=== PATIENT | male | born 1995 | race Caucasian/White ===

== ENCOUNTER 2020-03-09 14:46 | Emergency (ER) | payer OTHER, SELFPAY ==
[2020-03-09 14:53] VITALS: BP 124/77; PULSE 80; RESP 14; TEMP 36.4; O2SAT 100; BMI 24.4
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
[2020-03-09 16:01] VITALS: BP 121/61; PULSE 73; O2SAT 100
== END 2020-03-09 16:02 | disposition home or self-care (01) ==
PROVIDERS: Emergency Provider Emergency Medicine
DX: S09.90XA Unspecified injury of head, initial encounter (principal); R55 Syncope and collapse; W22.8XXA Striking against or struck by other objects, initial encounter; Y99.0 Civilian activity done for income or pay
CPT/HCPCS: 70450; 99281; 99284

== ENCOUNTER 2022-03-15 14:14 | Emergency (ER) | payer OTHER, SELFPAY ==
[2022-03-15 14:23] VITALS: BP 140/83; PULSE 91; RESP 16; TEMP 36.9; O2SAT 97; BMI 21.1
--- NOTE | 2022-03-15 14:36 | PC.NURSE ---
Pt given water and food. resting on stretcher. cooperative
--- NOTE | 2022-03-15 14:44 | ED.PSYCH ---
HPI - Psych <Elma Horton DO - Last Filed: 03/16/22 07:48> General Chief Complaint: Psychiatric Symptoms Stated Complaint: [place] Time Seen by Provider: 03/15/22 14:24 History of Present Illness HPI Narrative: Patient is a 26-year-old male history of polysubstance abuse including heroin methamphetamine cannabis and alcohol presenting today with altered mental status. 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 Patient reports that he is a Re and coordination of Wilfred Turcios in listening to the song Mr. Brock sue is truth. States that he is a fiancee who has not met yet they both like chocolate and they were both putting their mother's 1st. He is focused on the fact that his ex- and his mother have the same name. He states he does have a history of depression he was prescribed Zoloft however he does not really like it. Sounds like he uses substances to self medicate. He denies using any recent substances. He is not been hospitalized for mental health. He denies suicidal or homicidal ideations. He wants Peace for everyone. Related Data Allergies Allergy/AdvReac Type Severity Reaction Status Date / Time No Known Drug Allergies Allergy Verified 02/24/22 13:00 Review of Systems <DO Pati Olivas Last Filed: 03/16/22 07:48> Review of Systems ROS Unobtainable: All systems reviewed & are unremarkable except as noted in HPI and below Patient History <DO Pati Olivas Last Filed: 03/16/22 07:48> Medical History Elevated blood pressure reading without diagnosis of hypertension Heroin use Marijuana use Methamphetamine use Social History Smoking Status: Former smoker Smoking Status: Former smoker alcohol intake frequency: a few times a week Substance Use Type: marijuana Exam <DO Pati Olivas Last Filed: 03/16/22 07:48> Initial Vital Signs Initial Vital Signs: Vital Signs Temperature 98.4 F 03/15/22 14:23 Pulse Rate 91 H 03/15/22 14:23 Respiratory Rate 16 03/15/22 14:23 Blood Pressure 140/83 03/15/22 14:23 Pulse Oximetry 97 03/15/22 14:23 Oxygen Delivery Method 03/15/22 14:23 GENERAL: Well-appearing, well-nourished and in no acute distress. HEENT: Head atraumatic,EOMI, pupils reactive, face symmetric, moist mucous membranes CARDIOVASCULAR: Regular rate and rhythm without murmurs, rubs or gallops. RESPIRATORY: Breath sounds equal bilaterally, no wheezes rales or rhonchi. ABDOMEN: Soft, nontender. Normoactive bowel sounds all 4 quadrants. No guarding or rebound. EXTREMITIES: Normal range of motion, no clubbing or edema. Neurovascularly intact NEUROLOGICAL: Alert and oriented x4.Normal gait and speech. SKIN: Warm, dry, no laceration, no petechiae, no rashes or lesions. <Taco Gastelum MD - Last Filed: 03/16/22 05:32> Initial Vital Signs Initial Vital Signs: Vital Signs Temperature 98.4 F 03/15/22 14:23 Pulse Rate 91 H 03/15/22 14:23 Respiratory Rate 16 03/15/22 14:23 Blood Pressure 140/83 03/15/22 14:23 Pulse Oximetry 97 03/15/22 14:23 Oxygen Delivery Method 03/15/22 14:23 Course <Elma Horton DO - Last Filed: 03/16/22 07:48> Orders Ordered: ED Orders 03/16/22 03:52 EKG-12 Lead Stat 03/16/22 04:10 Covid-19 + FLU A/B + RSV - PCR Stat Discontinued Medications Olanzapine (Olanzapine 10 Mg Vial) 10 mg IM NOW ONE Stop: 03/15/22 19:51 Last Admin: 03/15/22 19:58 Dose: 10 mg Documented By: TEJAS Vital Signs Vital signs: Vital Signs - 8 hr 03/15/22 18:15 Pulse Rate 98 H Blood Pressure 127/72 Pulse Oximetry 97 Oxygen Delivery Method Room Air <Taco Gastelum MD - Last Filed: 03/16/22 05:32> Course Course Narrative: 7:[address] Horton patient has been evaluated by DCR services and has been detained. They are currently waiting for bed assignment. Patient will need Zyprexa intramuscular as he will likely not take oral medication. 12:15 a.m.. Patient has been accepted to [facility] for transfer. DCR has been involved Orders Ordered: ED Orders 03/16/22 03:52 EKG-12 Lead Stat 03/16/22 04:10 Covid-19 + FLU A/B + RSV - PCR Stat Discontinued Medications Olanzapine (Olanzapine 10 Mg Vial) 10 mg IM NOW ONE Stop: 03/15/22 19:51 Last Admin: 03/15/22 19:58 Dose: 10 mg Documented By: TEJAS Vital Signs Vital signs: Vital Signs - 8 hr 03/15/22 18:15 Pulse Rate 98 H Blood Pressure 127/72 Pulse Oximetry 97 Oxygen Delivery Method Room Air MDM - Psych <Elma Horton DO - Last Filed: 03/16/22 07:48> Lab Data Result diagrams: 03/15/22 15:10 03/15/22 15:10 Labs: Lab Results 03/15/22 03/15/22 03/15/22 Range/Units 14:30 14:30 15:10 WBC 5.4 (4.5-11.0) X10^3/uL RBC 5.02 (4.5-5.9) X10^6/uL Hgb 14.9 (13.5-17.5) g/dL Hct 43.8 (41-53) % MCV 87.2 (80-100) fL MCH 29.7 (26-34) PG MCHC 34.1 (30-36) % RDW 12.6 (11.6-14.8) % Plt Count 312 (150-400) X10^3/uL Neut % (Auto) 74.3 (50-75) % Lymph % (Auto) 16.7 L (25-40) % Esmeralda % (Auto) 8.0 (3-14) % Eos % (Auto) 0.3 L (2-4) % Baso % (Auto) 0.7 (0-2) % Neut # (Auto) 4000 (6372-3942) /uL Lymph # (Auto) 900 L (5890-2454) /uL Esmeralda # (Auto) 400 (0-900) /uL Eos # (Auto) 0 (0-450) /uL Baso # (Auto) 0 (0-100) /uL Sodium (137-145) mmol/L Potassium (3.4-5.1) mmol/L Chloride (98-107) mmol/L Carbon Dioxide (22-32) mmol/L BUN (9-20) mg/dL Creatinine (0.66-1.25) mg/dL Estimated GFR (>60) mL/min BUN/Creatinine Ratio (6-22) Glucose (70-100) mg/dL Calcium (8.4-10.2) mg/dL Total Bilirubin (0.2-1.3) mg/dL AST (17-59) IU/L ALT (<50) IU/L Alkaline Phosphatase (38-126) U/L Total Protein (6.3-8.2) g/dL TSH (0.47-4.68) uIU/mL Free T4 (0.78-2.19) ng/dL Urine Color Yellow Urine Appearance Clear Urine pH 6.5 (4.5-8.0) Ur Specific [place] 1.020 (1.000-1.035) Urine Protein Trace H (Negative) Urine Glucose (UA) Negative (Negative) g/dL Urine Ketones 1+ H (NEGATIVE) Urine Occult Blood Negative (Negative) Urine Nitrate Negative (Negative) Urine Bilirubin Negative (NEGATIVE) Urine Urobilinogen 0.2 (0.2) E.U./dL Ur Leukocyte Esterase Trace H (NEGATIVE) Urine RBC None seen (0-5/HPF) Urine WBC 0-1/hpf (0-5/HPF) Urine Bacteria None seen (None) Ur Culture Indicated? Specimen cultured Salicylates (<20) mg/dL U Opiates 300ng/mL cut Negative (Negative) Ur Oxycodone Screen Negative (Negative) Urine Methadone Screen Negative (Negative) Acetaminophen (10-30) ug/mL Ur Barbiturates Screen Negative (Negative) U Tricyclic Antidepress Negative (Negative) Ur Phencyclidine Scrn Negative (Negative) Ur Amphetamines Screen Negative (Negative) U Methamphetamines Scrn Negative (Negative) Ur MDMA Scrn (Ecstasy) Negative (Negative) U Benzodiazepines Scrn Negative (Negative) Urine Cocaine Screen Negative (Negative) U Marijuana (THC) Screen Negative (Negative) Ethyl Alcohol ( - 10) mg/dL SARS-CoV-2 (PCR) (Negative) Influenza A (RT-PCR) (NEGATIVE) Influenza B (RT-PCR) (NEGATIVE) RSV (PCR) (Negative) 03/15/22 03/15/22 03/15/22 Range/Units 15:10 15:10 15:52 WBC (4.5-11.0) X10^3/uL RBC (4.5-5.9) X10^6/uL Hgb (13.5-17.5) g/dL Hct (41-53) % MCV (80-100) fL MCH (26-34) PG MCHC (30-36) % RDW (11.6-14.8) % Plt Count (150-400) X10^3/uL Neut % (Auto) (50-75) % Lymph % (Auto) (25-40) % Esmeralda % (Auto) (3-14) % Eos % (Auto) (2-4) % Baso % (Auto) (0-2) % Neut # (Auto) (1490-8458) /uL Lymph # (Auto) (2182-8089) /uL Esmer[place]da # (Auto) (0-900) /uL Eos # (Auto) (0-450) /uL Baso # (Auto) (0-100) /uL Sodium 139 (137-145) mmol/L Potassium 4.4 (3.4-5.1) mmol/L Chloride 99 (98-107) mmol/L Carbon Dioxide 28 (22-32) mmol/L BUN 17 (9-20) mg/dL Creatinine 0.80 (0.66-1.25) mg/dL Estimated GFR > 60 (>60) mL/min BUN/Creatinine Ratio 21.3 (6-22) Glucose 111 H (70-100) mg/dL Calcium 10.1 (8.4-10.2) mg/dL Total Bilirubin 0.6 (0.2-1.3) mg/dL AST 34 (17-59) IU/L ALT 26 (<50) IU/L Alkaline Phosphatase 77 (38-126) U/L Total Protein 8.4 H (6.3-8.2) g/dL TSH 1.51 (0.47-4.68) uIU/mL Free T4 1.20 (0.78-2.19) ng/dL Urine Color Urine Appearance Urine pH (4.5-8.0) Ur Specific [place] (1.000-1.035) Urine Protein (Negative) Urine Glucose (UA) (Negative) g/dL Urine Ketones (NEGATIVE) Urine Occult Blood (Negative) Urine Nitrate (Negative) Urine Bilirubin (NEGATIVE) Urine Urobilinogen (0.2) E.U./dL Ur Leukocyte Esterase (NEGATIVE) Urine RBC (0-5/HPF) Urine WBC (0-5/HPF) Urine Bacteria (None) Ur Culture Indicated? Salicylates < 1.0 (<20) mg/dL U Opiates 300ng/mL cut (Negative) Ur Oxycodone Screen (Negative) Urine Methadone Screen (Negative) Acetaminophen < 10 (10-30) ug/mL Ur Barbiturates Screen (Negative) U Tricyclic Antidepress (Negative) Ur Phencyclidine Scrn (Negative) Ur Amphetamines Screen (Negative) U Methamphetamines Scrn (Negative) Ur MDMA Scrn (Ecstasy) (Negative) U Benzodiazepines Scrn (Negative) Urine Cocaine Screen (Negative) U Marijuana (THC) Screen (Negative) Ethyl Alcohol < 10 ( - 10) mg/dL SARS-CoV-2 (PCR) Negative (Negative) Influenza A (RT-PCR) (NEGATIVE) Influenza B (RT-PCR) (NEGATIVE) RSV (PCR) (Negative) 03/16/22 Range/Units 04:10 WBC (4.5-11.0) X10^3/uL RBC (4.5-5.9) X10^6/uL Hgb (13.5-17.5) g/dL Hct (41-53) % MCV (80-100) fL MCH (26-34) PG MCHC (30-36) % RDW (11.6-14.8) % Plt Count (150-400) X10^3/uL Neut % (Auto) (50-75) % Lymph % (Auto) (25-40) % Esmer[place]da % (Auto) (3-14) % Eos % (Auto) (2-4) % Baso % (Auto) (0-2) % Neut # (Auto) (0247-9624) /uL Lymph # (Auto) (7376-5038) /uL Esmer[place]da # (Auto) (0-900) /uL Eos # (Auto) (0-450) /uL Baso # (Auto) (0-100) /uL Sodium (137-145) mmol/L Potassium (3.4-5.1) mmol/L Chloride (98-107) mmol/L Carbon Dioxide (22-32) mmol/L BUN (9-20) mg/dL Creatinine (0.66-1.25) mg/dL Estimated GFR (>60) mL/min BUN/Creatinine Ratio (6-22) Glucose (70-100) mg/dL Calcium (8.4-10.2) mg/dL Total Bilirubin (0.2-1.3) mg/dL AST (17-59) IU/L ALT (<50) IU/L Alkaline Phosphatase (38-126) U/L Total Protein (6.3-8.2) g/dL TSH (0.47-4.68) uIU/mL Free T4 (0.78-2.19) ng/dL Urine Color Urine Appearance Urine pH (4.5-8.0) Ur Specific [place] (1.000-1.035) Urine Protein (Negative) Urine Glucose (UA) (Negative) g/dL Urine Ketones (NEGATIVE) Urine Occult Blood (Negative) Urine Nitrate (Negative) Urine Bilirubin (NEGATIVE) Urine Urobilinogen (0.2) E.U./dL Ur Leukocyte Esterase (NEGATIVE) Urine RBC (0-5/HPF) Urine WBC (0-5/HPF) Urine Bacteria (None) Ur Culture Indicated? Salicylates (<20) mg/dL U Opiates 300ng/mL cut (Negative) Ur Oxycodone Screen (Negative) Urine Methadone Screen (Negative) Acetaminophen (10-30) ug/mL Ur Barbiturates Screen (Negative) U Tricyclic Antidepress (Negative) Ur Phencyclidine Scrn (Negative) Ur Amphetamines Screen (Negative) U Methamphetamines Scrn (Negative) Ur MDMA Scrn (Ecstasy) (Negative) U Benzodiazepines Scrn (Negative) Urine Cocaine Screen (Negative) U Marijuana (THC) Screen (Negative) Ethyl Alcohol ( - 10) mg/dL SARS-CoV-2 (PCR) Negative (Negative) Influenza A (RT-PCR) Flu a negative (NEGATIVE) Influenza B (RT-PCR) Flu b negative (NEGATIVE) RSV (PCR) Negative (Negative) MDM Narrative Medical decision making narrative: Patient is a 26-year-old male with history of depression presents today by police for [place] and mental health evaluation. Has pressured speech grandiose ideas. Seems to be manic. Gravely disable. He is not able to care for children. Social work has been in to see and evaluate patient. He has extremely poor judgment. Patient is involuntary. DCR here in person to evaluate patient. Patient is detained. Patient signed out to Dr. Gastelum. Patient has been resting comfortably without any distress after Zyprexa. EKG normal sinus rhythm incomplete right bundle-branch block rate [address] elevation or depression MDM * differential diagnosis includes but not limited to: Method do psychosis, manic, bipolar, schizophrenia * Prior records reviewed: Previous PCP shows alcohol abuse and marijuana abuse * My lab interpretation: No significant lab abnormalities * My imaging interpretation: None * Clinical Decision Rules/Scores evaluated: None * Independent discussions with: DCR * Social Considerations: Children at home * Shared Decision Making: Social work *Disposition: Transfer [facility] <Taco Gastelum MD - Last Filed: 03/16/22 05:32> Lab Data Labs: Lab Results 03/15/22 03/15/22 03/15/22 Range/Units 14:30 14:30 15:10 WBC 5.4 (4.5-11.0) X10^3/uL RBC 5.02 (4.5-5.9) X10^6/uL Hgb 14.9 (13.5-17.5) g/dL Hct 43.8 (41-53) % MCV 87.2 (80-100) fL MCH 29.7 (26-34) PG MCHC 34.1 (30-36) % RDW 12.6 (11.6-14.8) % Plt Count 312 (150-400) X10^3/uL Neut % (Auto) 74.3 (50-75) % Lymph % (Auto) 16.7 L (25-40) % Esmer[place]da % (Auto) 8.0 (3-14) % Eos % (Auto) 0.3 L (2-4) % Baso % (Auto) 0.7 (0-2) % Neut # (Auto) 4000 (7184-5670) /uL Lymph # (Auto) 900 L (0462-9892) /uL [place]mer[place]da # (Auto) 400 (0-900) /uL Eos # (Auto) 0 (0-450) /uL Baso # (Auto) 0 (0-100) /uL Sodium (137-145) mmol/L Potassium (3.4-5.1) mmol/L Chloride (98-107) mmol/L Carbon Dioxide (22-32) mmol/L BUN (9-20) mg/dL Creatinine (0.66-1.25) mg/dL Estimated GFR (>60) mL/min BUN/Creatinine Ratio (6-22) Glucose (70-100) mg/dL Calcium (8.4-10.2) mg/dL Total Bilirubin (0.2-1.3) mg/dL AST (17-59) IU/L ALT (<50) IU/L Alkaline Phosphatase (38-126) U/L Total Protein (6.3-8.2) g/dL TSH (0.47-4.68) uIU/mL Free T4 (0.78-2.19) ng/dL Urine Color Yellow Urine Appearance Clear Urine pH 6.5 (4.5-8.0) Ur Specific [place] 1.020 (1.000-1.035) Urine Protein Trace H (Negative) Urine Glucose (UA) Negative (Negative) g/dL Urine Ketones 1+ H (NEGATIVE) Urine Occult Blood Negative (Negative) Urine Nitrate Negative (Negative) Urine Bilirubin Negative (NEGATIVE) Urine Urobilinogen 0.2 (0.2) E.U./dL Ur Leukocyte Esterase Trace H (NEGATIVE) Urine RBC None seen (0-5/HPF) Urine WBC 0-1/hpf (0-5/HPF) Urine Bacteria None seen (None) Ur Culture Indicated? Specimen cultured Salicylates (<20) mg/dL U Opiates 300ng/mL cut Negative (Negative) Ur Oxycodone Screen Negative (Negative) Urine Methadone Screen Negative (Negative) Acetaminophen (10-30) ug/mL Ur Barbiturates Screen Negative (Negative) U Tricyclic Antidepress Negative (Negative) Ur Phencyclidine Scrn Negative (Negative) Ur Amphetamines Screen Negative (Negative) U Methamphetamines Scrn Negative (Negative) Ur MDMA Scrn (Ecstasy) Negative (Negative) U Benzodiazepines Scrn Negative (Negative) Urine Cocaine Screen Negative (Negative) U Marijuana (THC) Screen Negative (Negative) Ethyl Alcohol ( - 10) mg/dL SARS-CoV-2 (PCR) (Negative) Influenza A (RT-PCR) (NEGATIVE) Influenza B (RT-PCR) (NEGATIVE) RSV (PCR) (Negative) 03/15/22 03/15/22 03/15/22 Range/Units 15:10 15:10 15:52 WBC (4.5-11.0) X10^3/uL RBC (4.5-5.9) X10^6/uL Hgb (13.5-17.5) g/dL Hct (41-53) % MCV (80-100) fL MCH (26-34) PG MCHC (30-36) % RDW (11.6-14.8) % Plt Count (150-400) X10^3/uL Neut % (Auto) (50-75) % Lymph % (Auto) (25-40) % [place] % (Auto) (3-14) % Eos % (Auto) (2-4) % Baso % (Auto) (0-2) % Neut # (Auto) (9396-1943) /uL Lymph # (Auto) (4124-5203) /uL [place]mer[place] # (Auto) (0-900) /uL Eos # (Auto) (0-450) /uL Baso # (Auto) (0-100) /uL Sodium 139 (137-145) mmol/L Potassium 4.4 (3.4-5.1) mmol/L Chloride 99 (98-107) mmol/L Carbon Dioxide 28 (22-32) mmol/L BUN 17 (9-20) mg/dL Creatinine 0.80 (0.66-1.25) mg/dL Estimated GFR > 60 (>60) mL/min BUN/Creatinine Ratio 21.3 (6-22) Glucose 111 H (70-100) mg/dL Calcium 10.1 (8.4-10.2) mg/dL Total Bilirubin 0.6 (0.2-1.3) mg/dL AST 34 (17-59) IU/L ALT 26 (<50) IU/L Alkaline Phosphatase 77 (38-126) U/L Total Protein 8.4 H (6.3-8.2) g/dL TSH 1.51 (0.47-4.68) uIU/mL Free T4 1.20 (0.78-2.19) ng/dL Urine Color Urine Appearance Urine pH (4.5-8.0) Ur Specific [place] (1.000-1.035) Urine Protein (Negative) Urine Glucose (UA) (Negative) g/dL Urine Ketones (NEGATIVE) Urine Occult Blood (Negative) Urine Nitrate (Negative) Urine Bilirubin (NEGATIVE) Urine Urobilinogen (0.2) E.U./dL Ur Leukocyte Esterase (NEGATIVE) Urine RBC (0-5/HPF) Urine WBC (0-5/HPF) Urine Bacteria (None) Ur Culture Indicated? Salicylates < 1.0 (<20) mg/dL U Opiates 300ng/mL cut (Negative) Ur Oxycodone Screen (Negative) Urine Methadone Screen (Negative) Acetaminophen < 10 (10-30) ug/mL Ur Barbiturates Screen (Negative) U Tricyclic Antidepress (Negative) Ur Phencyclidine Scrn (Negative) Ur Amphetamines Screen (Negative) U Methamphetamines Scrn (Negative) Ur MDMA Scrn (Ecstasy) (Negative) U Benzodiazepines Scrn (Negative) Urine Cocaine Screen (Negative) U Marijuana (THC) Screen (Negative) Ethyl Alcohol < 10 ( - 10) mg/dL SARS-CoV-2 (PCR) Negative (Negative) Influenza A (RT-PCR) (NEGATIVE) Influenza B (RT-PCR) (NEGATIVE) RSV (PCR) (Negative) 03/16/22 Range/Units 04:10 WBC (4.5-11.0) X10^3/uL RBC (4.5-5.9) X10^6/uL Hgb (13.5-17.5) g/dL Hct (41-53) % MCV (80-100) fL MCH (26-34) PG MCHC (30-36) % RDW (11.6-14.8) % Plt Count (150-400) X10^3/uL Neut % (Auto) (50-75) % Lymph % (Auto) (25-40) % [place] % (Auto) (3-14) % Eos % (Auto) (2-4) % Baso % (Auto) (0-2) % Neut # (Auto) (3065-4692) /uL Lymph # (Auto) (5327-5417) /uL [place] # (Auto) (0-900) /uL Eos # (Auto) (0-450) /uL Baso # (Auto) (0-100) /uL Sodium (137-145) mmol/L Potassium (3.4-5.1) mmol/L Chloride (98-107) mmol/L Carbon Dioxide (22-32) mmol/L BUN (9-20) mg/dL Creatinine (0.66-1.25) mg/dL Estimated GFR (>60) mL/min BUN/Creatinine Ratio (6-22) Glucose (70-100) mg/dL Calcium (8.4-10.2) mg/dL Total Bilirubin (0.2-1.3) mg/dL AST (17-59) IU/L ALT (<50) IU/L Alkaline Phosphatase (38-126) U/L Total Protein (6.3-8.2) g/dL TSH (0.47-4.68) uIU/mL Free T4 (0.78-2.19) ng/dL Urine Color Urine Appearance Urine pH (4.5-8.0) Ur Specific [place] (1.000-1.035) Urine Protein (Negative) Urine Glucose (UA) (Negative) g/dL Urine Ketones (NEGATIVE) Urine Occult Blood (Negative) Urine Nitrate (Negative) Urine Bilirubin (NEGATIVE) Urine Urobilinogen (0.2) E.U./dL Ur Leukocyte Esterase (NEGATIVE) Urine RBC (0-5/HPF) Urine WBC (0-5/HPF) Urine Bacteria (None) Ur Culture Indicated? Salicylates (<20) mg/dL U Opiates 300ng/mL cut (Negative) Ur Oxycodone Screen (Negative) Urine Methadone Screen (Negative) Acetaminophen (10-30) ug/mL Ur Barbiturates Screen (Negative) U Tricyclic Antidepress (Negative) Ur Phencyclidine Scrn (Negative) Ur Amphetamines Screen (Negative) U Methamphetamines Scrn (Negative) Ur MDMA Scrn (Ecstasy) (Negative) U Benzodiazepines Scrn (Negative) Urine Cocaine Screen (Negative) U Marijuana (THC) Screen (Negative) Ethyl Alcohol ( - 10) mg/dL SARS-CoV-2 (PCR) Negative (Negative) Influenza A (RT-PCR) Flu a negative (NEGATIVE) Influenza B (RT-PCR) Flu b negative (NEGATIVE) RSV (PCR) Negative (Negative) ECG Data Interpretation: Normal sinus rhythm rate [address] elevation or depression. Incomplete right bundle-branch block MDM Narrative Medical decision making narrative: Patient is a 26-year-old male with history of depression presents today by police for [place] and mental health evaluation. Has pressured speech grandiose ideas. Seems to be manic. Gravely disable. He is not able to care for children. Social work has been in to see and evaluate patient. Patient is DCR an involuntary. He has extremely poor judgment. Patient signed out to Dr. Gastelum. Patient has been resting comfortably without any distress after Zyprexa. EKG normal sinus rhythm incomplete right bundle-branch block rate [address] elevation or depression MDM * differential diagnosis includes but not limited to: Method do psychosis, manic, bipolar, schizophrenia * Prior records reviewed: Previous PCP shows alcohol abuse and marijuana abuse * My lab interpretation: No significant lab abnormalities * My imaging interpretation: None * Clinical Decision Rules/Scores evaluated: None * Independent discussions with: DCR * Social Considerations: Children at home * Shared Decision Making: Social work *Disposition: Transfer [facility] Discharge Plan Departure Patient Disposition: Xfer Psychiatric Hosp Clinical Impression: Bipolar disorder, Acute psychosis Referrals: America Reddy DO [Primary Care Provider] -
[2022-03-15 14:50] LABS: Appearance Urine UA CLEAR; Bilirubin Urine UA NEGATIVE (NEGATIVE); Color Urine UA YELLOW; Glucose Urine UA NEGATIVE (Negative); Ketones Urine UA 1+ (NEGATIVE); Leukocyte Esterase Urine UA TRACE (NEGATIVE); Nitrite Urine UA NEGATIVE (Negative); Occult Blood Urine UA NEGATIVE (Negative); Protein Urine UA TRACE (Negative); Urobilinogen Urine UA 0.2 E.U./dL (0.2); pH Urine UA 6.5 (4.5-8.0)
[2022-03-15 14:52] LABS: Bacteria Urine None Seen; Culture Indicated Urine Specimen Cultured; RBC Urine None Seen (0-5/HPF); WBC Urine 0-1/HPF (0-5/HPF)
[2022-03-15 15:08] LABS: UR Morphine/Opiate cutoff 300 Negative (Negative); Ur Creatinine Normal (Normal); Ur Specific Gravity Normal (Normal); Urine Amphetamines Negative (Negative); Urine Barbiturates Negative (Negative); Urine Benzodiazepines Negative (Negative); Urine Cocaine Negative (Negative); Urine MDMA Negative (Negative); Urine Methadone Negative (Negative); Urine Methamphetamines Negative (Negative); Urine Oxycodone Negative (Negative); Urine Phencyclidine Negative (Negative); Urine Tetrahydrocannabinol Negative (Negative); Urine Tricyclic Antidepressant Negative (Negative); Urine pH Normal (Normal)
[2022-03-15 15:24] LABS: Add Manual Diff / Slide Review NO; Basophils Absolute Auto 0 /uL (0-100); Basophils Percent Auto 0.7 % (0-2); Eosinophils Absolute Auto 0 /uL (0-450); Eosinophils Percent Auto 0.3 % (2-4); Hematocrit 43.8 % (41-53); Hemoglobin 14.9 g/dL (13.5-17.5); Lymphocytes Absolute Auto 900 /uL (1100-4500); Lymphocytes Percent Auto 16.7 % (25-40); Mean Corpuscular HGB Conc 34.1 % (30-36); Mean Corpuscular Hemoglobin 29.7 PG (26-34); Mean Corpuscular Volume 87.2 fL (80-100); Monocytes Absolute Auto 400 /uL (0-900); Neutrophils Absolute Auto 4000 /uL (1500-7000); Neutrophils Percent Auto 74.3 % (50-75); Platelet Count 312 X10^3/uL (150-400); Red Blood Cell Count 5.02 X10^6/uL (4.5-5.9); Red Cell Distribution Width 12.6 % (11.6-14.8); White Blood Cell Count 5.4 X10^3/uL (4.5-11.0)
[2022-03-15 15:38] LABS: Acetaminophen < 10 ug/mL (10-30); Alanine Aminotransferase 26 IU/L (<50); Alkaline Phosphatase 77 U/L (38-126); Aspartate Aminotransferase 34 IU/L (17-59); BUN Creatinine Ratio 21.3 (6-22); Bilirubin Total 0.6 mg/dL (0.2-1.3); Blood Urea Nitrogen 17 mg/dL (9-20); Calcium 10.1 mg/dL (8.4-10.2); Carbon Dioxide 28 mmol/L (22-32); Chloride 99 mmol/L (98-107); Estimated Glomerular Filt Rate > 60 mL/min (>60); Ethanol (ETOH) < 10 mg/dL; Glucose 111 mg/dL (70-100); HEMOLYSIS < 15 (0-50); Potassium 4.4 mmol/L (3.4-5.1); Salicylate < 1.0 mg/dL (<20); Sodium 139 mmol/L (137-145); Total Protein 8.4 g/dL (6.3-8.2)
[2022-03-15 16:15] LABS: Thyroid Stimulating Hormone 1.51 uIU/mL (0.47-4.68)
[2022-03-15 16:19] LABS: COVID19 -Nasal RAPID Negative (Negative)
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
--- NOTE | 2022-03-15 16:50 | PC.NURSE ---
Asked if he can check out
[2022-03-15 18:15] VITALS: BP 127/72; PULSE 98; O2SAT 97
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
--- NOTE | 2022-03-15 19:16 | PC.NURSE ---
Talking with DCR
--- NOTE | 2022-03-15 19:40 | CM.SWNOTE ---
STAVE LOG RIPSAW OPERATOR Note STAVE LOG RIPSAW OPERATOR dispatches DCR, DCR Davis is assigned. DCR attempts to meet with patient via Ipad but DCR is unable to hear patient. STAVE LOG RIPSAW OPERATOR attempts to use phone for audio and ipad video but patient becomes frustrated even with assistance from DRY STARCH SUPERVISOR. STAVE LOG RIPSAW OPERATOR requests that DCR comes to ED in person, DCR meets with patient in person and assesses patient for about an hour. DCR reports her plans to call patient's mother and pursue detainment and seek [place] placement. STAVE LOG RIPSAW OPERATOR and DCR reviews this with ED provider Dr. Gastelum, ED provider plans provide chemical intervention for de-escalation as patient is anti-medication and pacing in the room unable to de-escalate independently. Plan: DCR to seek [place] placement for patient. Pearl Solis, ANTHROPOLOGY INSTRUCTOR
[2022-03-15] MEDS: OLANZapine 10 MG VIAL IM (19:58)
[2022-03-16 04:55] LABS: Influenza A - CEPHEID Flu A NEGATIVE (NEGATIVE); Influenza B - CEPHEID Flu B NEGATIVE (NEGATIVE); Respiratory Syncytial Virus Negative (Negative)
[2022-03-16 05:00] LABS: COVID-19 CEPHEID 4-PLEX PCR Negative (Negative)
[2022-03-17 16:29] LABS: Albumin Globulin Ratio 1.5 (1.0-2.8); Globulin 3.4 g/dL (1.7-4.1)
== END 2022-03-16 05:14 ==
PROVIDERS: Emergency Medicine; Emergency Provider Emergency Medicine; PCP Family Medicine
DX: F31.9 Bipolar disorder, unspecified (principal); F23 Brief psychotic disorder; Z20.822 Contact with and (suspected) exposure to COVID-19
CPT/HCPCS: 0241U; 36415; 80053; 80305; 80320; 80329; 81001; 84439; 84443; 85025; 87086; 87635; 93005; 96372; 99284; C9803; G0480; S0166

== ENCOUNTER 2022-05-15 22:01 | Emergency (ER) | payer OTHER, SELFPAY ==
[2022-05-15 22:06] VITALS: BP 127/80; PULSE 85; RESP 16; TEMP 36.9; O2SAT 98; BMI 22.4
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
== END 2022-05-16 00:15 | disposition home or self-care (01) ==
PROVIDERS: Emergency Provider Emergency Medicine; PCP Family Medicine
DX: F31.9 Bipolar disorder, unspecified (principal); V49.40XA Driver injured in collision with unspecified motor vehicles in traffic accident, initial encounter
CPT/HCPCS: 99281

== ENCOUNTER 2022-05-28 08:33 | Emergency (ER) | payer OTHER, MEDICAID, SELFPAY ==
--- NOTE | 2022-05-28 08:43 | ED.PSYCH ---
HPI - Psych General Chief Complaint: Psychiatric Symptoms Stated Complaint: bipolar, psychosis state, threatening suicide Time Seen by Provider: 05/28/22 08:43 Source: patient, RN notes reviewed and old records reviewed Mode of arrival: Ambulatory Limitations: no limitations History of Present Illness HPI Narrative: This is a 26-year-old male with prior history of polysubstance abuse including heroin, methamphetamine and cannabis who states no recent ingestions besides THC. Patient states he is had thoughts of harming himself recently which include cutting his wrist. He states he does not currently have a plan he states he does not wish to harm himself, he states he does not wish to harm others. States that he feels like he is starting to go crazy again. He states he is not having auditory or visual hallucinations but does feel like the thoughts in his head or spinning out of control. Patient states that he was seen and hospitalized in February for mental health. He states he was started on olanzapine, hydroxyzine and another antidepressant. He states he has been taking these daily but he is not convinced that they are helpful. He did have a dose of hydroxyzine at 8:00 a.m. this morning. Patient sees Dr. Del Real as his primary care and he seeing a Dr. Connolly and Dr. Canas for his psychiatric care. He does not currently have a counselor. Patient states that he seeking help he would like to meet with our sr. social media & mobile manager but they are not present until noon today he states he does not wish to wait. He contracts for safety he states that he will return he is having worsening thoughts. He was offered to have further evaluation and lab workup which he defers. He does not appear to be incapacitated at this time or be to level risk to himself that I can hold him involuntarily. He denies tobacco, no active alcohol use. He states he smoked marijuana 2 days ago but has not used any other substances for an extended period of time. He denies any other daily medical issues, no prior surgeries. No known drug allergies. Related Data Previous Rx's Medication Instructions Recorded albuterol sulfate 90 mcg/actuation 1 - 2 inh inhalation Q4-6H PRN 04/05/22 aerosol inhaler shortness of breath or wheezing #8.5 grams hydroxyzine HCl 10 mg tablet 10 mg PO Q6-8H PRN anxiety #30 tabs 04/05/22 olanzapine 10 mg tablet 10 mg PO DAILY #30 tabs 04/05/22 Allergies Allergy/AdvReac Type Severity Reaction Status Date / Time No Known Drug Allergies Allergy Verified 04/05/22 14:32 Review of Systems Review of Systems ROS Unobtainable: All systems reviewed & are unremarkable except as noted in HPI and below Patient History Medical History Acne (~2005) Asthma (~2015) Bipolar 1 disorder Chronic back pain (~2015) Elevated blood pressure reading without diagnosis of hypertension Hearing loss Heroin use Marijuana use Methamphetamine use Musculoskeletal disorder Psychosis Scoliosis Vasovagal response (~2004) Whooping cough (~2015) Surgical History History of oral surgery Family History Father Diabetes mellitus Mental health problem Epilepsy Mother Melanoma Cancer Diabetes mellitus Mental health problem Grandfather Cancer Grandfather Alzheimer's disease Grandmother Cancer Melanoma Social History Smoking Status: Former smoker Smoking Status: Former smoker alcohol intake frequency: a few times a week Substance Use Type: does not use Exam Narrative Exam Narrative: GENERAL: Alert and oriented x three, male in mild distress. Patient is well-groomed. Clear speech. HEENT: Head normocephalic, atraumatic, EOMI, pupils reactive, face symmetric, moist mucous membranes NECK: Supple, full range of motion CARDIOVASCULAR: Regular rate and rhythm without murmurs, rubs or gallops. RESPIRATORY: Breath sounds equal bilaterally, no wheezes rales or rhonchi. ABDOMEN: Soft, nontender. Normoactive bowel sounds all 4 quadrants. No guarding or rebound, rigidity, no mass : No CVA tenderness EXTREMITIES: Normal range of motion, no clubbing or edema. Neurovascularly intact NEUROLOGICAL: Cranial nerves II through XII grossly intact. Moving all extremities SKIN: Warm, dry, no petechiae, no rashes or lesions. PSYCH: Patient describes suicidal thoughts, no intent, no active plan, denies homicidal thoughts, no hallucinations. Initial Vital Signs Initial Vital Signs: Vital Signs Temperature 98.5 F 05/28/22 08:45 Pulse Rate 80 05/28/22 08:45 Respiratory Rate 18 05/28/22 08:45 Blood Pressure 155/77 H 05/28/22 08:45 Pulse Oximetry 98 05/28/22 08:45 Oxygen Delivery Method Room Air 05/28/22 08:45 MDM - Psych MDM Narrative Medical decision making narrative: This is a 26-year-old male with history of mental health disease and prior polysubstance abuse who presents for thoughts that he describes as out of control in his brain he is had some suicidal ideation, denies any intent, denies active plan denies thoughts of harming himself or others. He does not appear to be gravely disabled at this time. We did discuss possibly getting blood and talking with our sr. social media & mobile manager for possible medical clearance for voluntary placement do not think that he meets criteria for [place] at this time. Patient does not wish to wait as that would be 3 hour wait speak with our sr. social media & mobile manager and he states he would miss work. He did discuss he might return at a later time. He has follow-up with his primary care and Psychiatry. He is encouraged to continue his medications. Did discuss with patient he can return at any time and social work is present here afternoon if he would like to return at that time. Discharge Plan Departure Patient Disposition: Home Clinical Impression: Suicidal ideation Activity Restrictions/Additional Instructions: You are welcome to return at any time for re-evaluation or to meet with our sr. social media & mobile manager. They should be here after noon today. If you're feeling suicidal or having suicidal thoughts, contact the suicide hotline (this is also a self-referral number for counseling and assistance had not just suicide hotline): . I would recommend you continue your home medications right now. Please return if you are having worsening thoughts of harming yourself, if you feel your unsafe if you feel your going to harm someone else we have any other new or concerning changes. Prescriptions: No Action hydroxyzine HCl 10 mg tablet 10 mg PO Q6-8H PRN (Reason: anxiety) Qty: 30 5RF albuterol sulfate 90 mcg/actuation HFA aerosol inhaler 1 - 2 inh inhalation Q4-6H PRN (Reason: shortness of breath or wheezing) Qty: 8.5 11RF olanzapine 10 mg tablet 10 mg PO DAILY Qty: 30 5RF Referrals: America Reddy DO [Primary Care Provider] - Stand Alone Forms: Patient Portal/API
[2022-05-28 08:45] VITALS: BP 155/77; PULSE 80; RESP 18; TEMP 36.9; O2SAT 98
--- NOTE | 2022-05-28 11:49 | CM.SWNOTE ---
OIL RAG WASHER follow up Note Patient presented to ED due to concern for psychosis, patient initially endorsed thoughts of using knife to harm/kill self but denied intent and states he would reach out for help prior to doing so. Patient was deemed safe to d/c by ED provider prior to OIL RAG WASHER's arrival to work. Patient is 26 y/o male with hx of Bipolar and Polysubstance use. Patient has hx of [place] inpatient placement at [facility] on 03/16/22. OIL RAG WASHER calls patient patient presents with flat affect on phone stating that he is in full blown psychosis. Patient states that he called out sick from work and he is at home with his mother in [place]. Patient endorses safety but states he is mentally drained. Patient endorses concern for his finances and states he was scammed. OIL RAG WASHER asks if patient is willing to recieve a call from the crisis line, patient endorses agreement. OIL RAG WASHER encourages patient to return to ED if symptoms worsen and if patient feels unsafe, patient indicates agreement and understanding. OIL RAG WASHER calls [facility] crisis line and schedules f/u call for patient for this afternoon. Clinician reports that if patient is deemed unsafe or gravely disabled, DCR will be dispatched to patient's residence. MICHELLE PatelSW
== END 2022-05-28 08:56 | disposition home or self-care (01) ==
PROVIDERS: Emergency Provider Emergency Medicine; PCP Family Medicine
DX: R45.851 Suicidal ideations (principal)
CPT/HCPCS: 99283

== ENCOUNTER 2022-05-28 18:08 | Emergency (ER) | payer OTHER, MEDICAID, SELFPAY ==
[2022-05-28 18:14] VITALS: BP 127/77; PULSE 104; RESP 16; TEMP 36.7; O2SAT 100; BMI 23.0
--- NOTE | 2022-05-28 18:47 | PC.NURSE ---
Patient getting lab draw, lab called for help. Patient pale, diaphoretic and eyes rolled back. Quickly responded to staff, did I pass out again Patient reclined in chair and vitals checked.
[2022-05-28 18:48] VITALS: BP 145/76; PULSE 74; RESP 16; O2SAT 99
[2022-05-28 18:58] LABS: Add Manual Diff / Slide Review NO; Basophils Absolute Auto 100 /uL (0-100); Basophils Percent Auto 0.9 % (0-2); Eosinophils Absolute Auto 100 /uL (0-450); Eosinophils Percent Auto 1.8 % (2-4); Hematocrit 46.6 % (41-53); Hemoglobin 15.9 g/dL (13.5-17.5); Lymphocytes Absolute Auto 1400 /uL (1100-4500); Lymphocytes Percent Auto 21.3 % (25-40); Mean Corpuscular HGB Conc 34.2 % (30-36); Mean Corpuscular Hemoglobin 29.6 PG (26-34); Mean Corpuscular Volume 86.5 fL (80-100); Monocytes Absolute Auto 600 /uL (0-900); Monocytes Percent Auto 10.1 % (3-14); Neutrophils Absolute Auto 4200 /uL (1500-7000); Neutrophils Percent Auto 65.9 % (50-75); Platelet Count 255 X10^3/uL (150-400); Red Blood Cell Count 5.39 X10^6/uL (4.5-5.9); White Blood Cell Count 6.3 X10^3/uL (4.5-11.0)
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
--- NOTE | 2022-05-28 19:16 | CM.SWNOTE ---
PAD HAND Note PAD HAND calls [facility] intake (pH. # [phone]) It is reported that they have two beds, intake is familiar with patient and would be willing to accept patient upon medical clearance and [facility] Pre-authorization. PAD HAND completes Pre-auth form. Patient awaiting medical clearance. Plan: ED team to fax packet to [facility] and fax referral to [facility] for potential voluntary BH transfer. Pearl Solis, FLAKE CUTTER OPERATOR
[2022-05-28 19:18] LABS: Alanine Aminotransferase 22 IU/L (<50); Albumin 4.8 g/dL (3.5-5.0); Albumin Globulin Ratio 1.4 (1.0-2.8); Alkaline Phosphatase 69 U/L (38-126); Aspartate Aminotransferase 23 IU/L (17-59); BUN Creatinine Ratio 16.3 (6-22); Bilirubin Total 0.5 mg/dL (0.2-1.3); Blood Urea Nitrogen 13 mg/dL (9-20); Calcium 9.5 mg/dL (8.4-10.2); Carbon Dioxide 32 mmol/L (22-32); Chloride 100 mmol/L (98-107); Estimated Glomerular Filt Rate > 60 mL/min (>60); Ethanol (ETOH) < 10 mg/dL; Globulin 3.5 g/dL (1.7-4.1); Glucose 130 mg/dL (70-100); HEMOLYSIS 16 (0-50); Potassium 4.1 mmol/L (3.4-5.1); Sodium 139 mmol/L (137-145); Total Protein 8.3 g/dL (6.3-8.2)
[2022-05-28 19:26] LABS: COVID19 -Nasal RAPID Negative (Negative)
[2022-05-28 19:48] LABS: TSH w/ Reflex to FT4 1.06 uIU/mL (0.47-4.68)
[2022-05-28 19:49] LABS: Appearance Urine UA CLEAR; Bilirubin Urine UA NEGATIVE (NEGATIVE); Color Urine UA YELLOW; Glucose Urine UA NEGATIVE (Negative); Ketones Urine UA TRACE (NEGATIVE); Leukocyte Esterase Urine UA NEGATIVE (NEGATIVE); Nitrite Urine UA NEGATIVE (Negative); Occult Blood Urine UA NEGATIVE (Negative); Protein Urine UA NEGATIVE (Negative); Specific Gravity Urine UA 1.015 (1.000-1.035)
[2022-05-28 19:53] LABS: UR Morphine/Opiate cutoff 300 Negative (Negative); Ur Creatinine Normal (Normal); Ur Specific Gravity Normal (Normal); Urine Amphetamines Negative (Negative); Urine Barbiturates Negative (Negative); Urine Benzodiazepines Negative (Negative); Urine Cocaine Negative (Negative); Urine MDMA Negative (Negative); Urine Methadone Negative (Negative); Urine Methamphetamines Negative (Negative); Urine Oxycodone Negative (Negative); Urine Phencyclidine Negative (Negative); Urine Tetrahydrocannabinol Negative (Negative); Urine Tricyclic Antidepressant Negative (Negative); Urine pH Normal (Normal)
[2022-05-28 19:56] LABS: Bacteria Urine Occasional (0-1); RBC Urine None Seen (0-5/HPF); WBC Urine None Seen (0-5/HPF)
--- NOTE | 2022-05-28 20:02 | PC.NURSE ---
Voluntary [facility] has beds, will need pre-auth insurance from [facility] Please Fax&call both [facility] (Ph. # [phone] In AM to f/u) and [facility] (Ph. # [phone]) Sister: Vale Jara. Pt gave consent for sister to talk about patient [phone]
--- NOTE | 2022-05-28 21:32 | ED.PSYCH ---
HPI - Psych <Marshall Hinojosa DO - Last Filed: 05/30/22 05:20> General Chief Complaint: Psychiatric Symptoms Stated Complaint: SI Time Seen by Provider: 05/28/22 18:18 Mode of arrival: other History of Present Illness HPI Narrative: 26-year-old male nonsmoker with history of bipolar 1 disorder, suicidal ideation without attempt, history of polysubstance abuse including marijuana and more remotely mushrooms, mildly, methamphetamines, heroin and kratom. Patient had been seen and evaluated earlier today and was feeling well enough to go home but as the day has worn on he states that his feeling of detachment as well as thoughts of suicidal ideation have been intensifying and he came back. He is asking for help and is hoping to become placed. He is already been seen by social work. Though he has suicidal ideation he denies any specific plan at this time. He states his trigger is financial but did not go into further detail. He denies auditory or visual hallucinations. He states that up until today he had been taking his medications as directed but admittedly does not like how they make him feel Related Data Home Medications Medication Instructions Recorded Confirmed lamotrigine 25 mg tablet mg 05/28/22 olanzapine 10 mg tablet 10 mg PO QPM 05/28/22 05/28/22 Previous Rx's Medication Instructions Recorded albuterol sulfate 90 mcg/actuation 1 - 2 inh inhalation Q4-6H PRN 04/05/22 aerosol inhaler shortness of breath or wheezing #8.5 grams hydroxyzine HCl 10 mg tablet 10 mg PO Q6-8H PRN anxiety #30 tabs 04/05/22 Allergies Allergy/AdvReac Type Severity Reaction Status Date / Time No Known Drug Allergies Allergy Verified 05/28/22 20:52 Review of Systems <Marshall Hinojosa DO - Last Filed: 05/30/22 05:20> Review of Systems Narrative: GENERAL: Denies chills, fatigue, malaise, fever, sweats. HEENT: Denies sinus pain, ear pain, sore throat, difficulty swallowing, dizziness. RESPIRATORY: Denies dyspnea, cough, wheezing, hemoptysis, sputum. CARDIOVASCULAR: Denies chest pain, palpitations, orthopnea, edema, GASTROINTESTINAL: Denies nausea, vomiting, abdominal pain, diarrhea, constipation, melena. : Denies dysuria, frequency, incontinence, hematuria, urinary retention. MUSCULOSKELETAL: denies weakness, joint pain, or bony pain SKIN: Denies rash, skin lesions, or other NEUROLOGIC: Denies weakness, headache, numbness, change in speech, confusion, seizures, incoordination. PSYCHIATRIC: See HPI 12 point review of systems is negative except for those stated above Patient History <Marshall Hinojosa DO - Last Filed: 05/30/22 05:20> Medical History Acne (~2005) Asthma (~2015) Bipolar 1 disorder Chronic back pain (~2015) Elevated blood pressure reading without diagnosis of hypertension Hearing loss Heroin use Marijuana use Methamphetamine use Musculoskeletal disorder Psychosis Scoliosis Vasovagal response (~2004) Whooping cough (~2015) Surgical History History of oral surgery Family History Father Diabetes mellitus Mental health problem Epilepsy Mother Melanoma Cancer Diabetes mellitus Mental health problem Grandfather Cancer Grandfather Alzheimer's disease Grandmother Cancer Melanoma Social History Smoking Status: Former smoker Smoking Status: Former smoker alcohol intake frequency: a few times a week Substance Use Type: former substance user and marijuana Exam <Marshall Hinojosa DO - Last Filed: 05/30/22 05:20> Narrative Exam Narrative: GENERAL: [26] year old patient appears stated age. Well-developed patient, in mild distress. HEAD: Atraumatic. Normocephalic. EYES: Pupils equal round and reactive. Extraocular motions intact. No scleral icterus. No injection or drainage. ENT: Nose without bleeding, purulent drainage. Throat without erythema, tonsillar hypertrophy or exudate. Airway patent. NECK: Trachea midline. Non tender CARDIOVASCULAR: Regular rate and rhythm without murmurs, gallops, or rubs. RESPIRATORY: Clear to auscultation. Breath sounds equal bilaterally. No wheezes, rales, or rhonchi. GASTROINTESTINAL: Abdomen soft, non-tender, nondistended. EXTREMITIES: No edema or joint tenderness. BACK: Nontender without deformity or crepitance. No flank tenderness. NEURO: AOx3. SKIN: No rash or erythema of visible areas Initial Vital Signs Initial Vital Signs: Vital Signs Temperature 98.1 F 05/28/22 18:14 Pulse Rate 104 H 05/28/22 18:14 Respiratory Rate 16 05/28/22 18:14 Blood Pressure 127/77 05/28/22 18:14 Pulse Oximetry 100 05/28/22 18:14 Oxygen Delivery Method Room Air 05/28/22 18:14 <Kayce Abreu DO - Last Filed: 05/29/22 18:45> Initial Vital Signs Initial Vital Signs: Vital Signs Temperature 98.1 F 05/28/22 18:14 Pulse Rate 104 H 05/28/22 18:14 Respiratory Rate 16 05/28/22 18:14 Blood Pressure 127/77 05/28/22 18:14 Pulse Oximetry 100 05/28/22 18:14 Oxygen Delivery Method Room Air 05/28/22 18:14 Course <Marshall Hinojosa DO - Last Filed: 05/30/22 05:20> Orders Ordered: Discontinued Medications Olanzapine (Olanzapine Odt 10 Mg Tab) 20 mg PO NOW ONE Stop: 05/28/22 22:00 Last Admin: 05/28/22 22:03 Dose: 20 mg Documented By: NAOMI Olanzapine (Olanzapine Odt 10 Mg Tab) 20 mg PO NOW ONE Stop: 05/29/22 10:58 Last Admin: 05/29/22 11:10 Dose: 20 mg Documented By: AMU Consultations Consultation #1: Seen by social work, please review their note for details Vital Signs Vital signs: Vital Signs - 8 hr 05/29/22 07:12 Pulse Rate 91 H Blood Pressure 127/82 Pulse Oximetry 98 Oxygen Delivery Method Room Air <Kayce Abreu DO - Last Filed: 05/29/22 18:45> Orders Ordered: Discontinued Medications Olanzapine (Olanzapine Odt 10 Mg Tab) 20 mg PO NOW ONE Stop: 05/28/22 22:00 Last Admin: 05/28/22 22:03 Dose: 20 mg Documented By: NAOMI Olanzapine (Olanzapine Odt 10 Mg Tab) 20 mg PO NOW ONE Stop: 05/29/22 10:58 Last Admin: 05/29/22 11:10 Dose: 20 mg Documented By: AMU Vital Signs Vital signs: Vital Signs - 8 hr 05/29/22 07:12 Pulse Rate 91 H Blood Pressure 127/82 Pulse Oximetry 98 Oxygen Delivery Method Room Air MDM - Psych <Marshall Hinojosa, DO - Last Filed: 05/30/22 05:20> Lab Data 05/28/22 18:40 05/28/22 18:40 Labs: Lab Results 05/28/22 05/28/22 05/28/22 Range/Units 18:40 18:40 18:40 WBC 6.3 (4.5-11.0) X10^3/uL RBC 5.39 (4.5-5.9) X10^6/uL Hgb 15.9 (13.5-17.5) g/dL Hct 46.6 (41-53) % MCV 86.5 (80-100) fL MCH 29.6 (26-34) PG MCHC 34.2 (30-36) % RDW 13.0 (11.6-14.8) % Plt Count 255 (150-400) X10^3/uL Neut % (Auto) 65.9 (50-75) % Lymph % (Auto) 21.3 L (25-40) % [place] % (Auto) 10.1 (3-14) % Eos % (Auto) 1.8 L (2-4) % Baso % (Auto) 0.9 (0-2) % Neut # (Auto) 4200 (4498-4344) /uL Lymph # (Auto) 1400 (7847-1123) /uL [place] # (Auto) 600 (0-900) /uL Eos # (Auto) 100 (0-450) /uL Baso # (Auto) 100 (0-100) /uL Sodium 139 (137-145) mmol/L Potassium 4.1 (3.4-5.1) mmol/L Chloride 100 (98-107) mmol/L Carbon Dioxide 32 (22-32) mmol/L BUN 13 (9-20) mg/dL Creatinine 0.80 (0.66-1.25) mg/dL Estimated GFR > 60 (>60) mL/min BUN/Creatinine Ratio 16.3 (6-22) Glucose 130 H (70-100) mg/dL Calcium 9.5 (8.4-10.2) mg/dL Total Bilirubin 0.5 (0.2-1.3) mg/dL AST 23 (17-59) IU/L ALT 22 (<50) IU/L Alkaline Phosphatase 69 (38-126) U/L Total Protein 8.3 H (6.3-8.2) g/dL Albumin 4.8 (3.5-5.0) g/dL Globulin 3.5 (1.7-4.1) g/dL Albumin/Globulin Ratio 1.4 (1.0-2.8) TSH 1.06 (0.47-4.68) uIU/mL Urine Color Urine Appearance Urine pH (4.5-8.0) Ur Specific [place] (1.000-1.035) Urine Protein (Negative) Urine Glucose (UA) (Negative) g/dL Urine Ketones (NEGATIVE) Urine Occult Blood (Negative) Urine Nitrate (Negative) Urine Bilirubin (NEGATIVE) Urine Urobilinogen (0.2) E.U./dL Ur Leukocyte Esterase (NEGATIVE) Urine RBC (0-5/HPF) Urine WBC (0-5/HPF) Urine Bacteria (None) U Opiates 300ng/mL cut (Negative) Ur Oxycodone Screen (Negative) Urine Methadone Screen (Negative) Ur Barbiturates Screen (Negative) U Tricyclic Antidepress (Negative) Ur Phencyclidine Scrn (Negative) Ur Amphetamines Screen (Negative) U Methamphetamines Scrn (Negative) Ur MDMA Scrn (Ecstasy) (Negative) U Benzodiazepines Scrn (Negative) Urine Cocaine Screen (Negative) U Marijuana (THC) Screen (Negative) Ethyl Alcohol < 10 ( - 10) mg/dL SARS-CoV-2 (PCR) (Negative) 05/28/22 05/28/22 05/28/22 Range/Units 19:00 19:20 19:20 WBC (4.5-11.0) X10^3/uL RBC (4.5-5.9) X10^6/uL Hgb (13.5-17.5) g/dL Hct (41-53) % MCV (80-100) fL MCH (26-34) PG MCHC (30-36) % RDW (11.6-14.8) % Plt Count (150-400) X10^3/uL Neut % (Auto) (50-75) % Lymph % (Auto) (25-40) % [place] % (Auto) (3-14) % Eos % (Auto) (2-4) % Baso % (Auto) (0-2) % Neut # (Auto) (6695-0822) /uL Lymph # (Auto) (8460-3583) /uL [place] # (Auto) (0-900) /uL Eos # (Auto) (0-450) /uL Baso # (Auto) (0-100) /uL Sodium (137-145) mmol/L Potassium (3.4-5.1) mmol/L Chloride (98-107) mmol/L Carbon Dioxide (22-32) mmol/L BUN (9-20) mg/dL Creatinine (0.66-1.25) mg/dL Estimated GFR (>60) mL/min BUN/Creatinine Ratio (6-22) Glucose (70-100) mg/dL Calcium (8.4-10.2) mg/dL Total Bilirubin (0.2-1.3) mg/dL AST (17-59) IU/L ALT (<50) IU/L Alkaline Phosphatase (38-126) U/L Total Protein (6.3-8.2) g/dL Albumin (3.5-5.0) g/dL Globulin (1.7-4.1) g/dL Albumin/Globulin Ratio (1.0-2.8) TSH (0.47-4.68) uIU/mL Urine Color Yellow Urine Appearance Clear Urine pH 7.0 (4.5-8.0) Ur Specific [place] 1.015 (1.000-1.035) Urine Protein Negative (Negative) Urine Glucose (UA) Negative (Negative) g/dL Urine Ketones Trace H (NEGATIVE) Urine Occult Blood Negative (Negative) Urine Nitrate Negative (Negative) Urine Bilirubin Negative (NEGATIVE) Urine Urobilinogen 1.0 (0.2) E.U./dL Ur Leukocyte Esterase Negative (NEGATIVE) Urine RBC None seen (0-5/HPF) Urine WBC None seen (0-5/HPF) Urine Bacteria Occasional (0-1) (None) U Opiates 300ng/mL cut Negative (Negative) Ur Oxycodone Screen Negative (Negative) Urine Methadone Screen Negative (Negative) Ur Barbiturates Screen Negative (Negative) U Tricyclic Antidepress Negative (Negative) Ur Phencyclidine Scrn Negative (Negative) Ur Amphetamines Screen Negative (Negative) U Methamphetamines Scrn Negative (Negative) Ur MDMA Scrn (Ecstasy) Negative (Negative) U Benzodiazepines Scrn Negative (Negative) Urine Cocaine Screen Negative (Negative) U Marijuana (THC) Screen Negative (Negative) Ethyl Alcohol ( - 10) mg/dL SARS-CoV-2 (PCR) Negative (Negative) Urine Dip Bedside Urine Glucose Negative Bedside Urine Bilirubin - Negative Bedside Urine Ketone - Negative Urine Specific [place] 1.010 Bedside Urine Occult Blood - Negative Bedside Urine pH 7.5 Bedside Urine Protein - Negative Bedside Urine Urobilinogen - Negative Bedside Urine Nitrite - Negative Bedside Urine Leukocytes - Negative Esterase MDM Narrative Medical decision making narrative: 26-year-old male bipolar with increasing suicidal ideation presents requesting help with placement. He is voluntary and has been seen by social work. He is medically cleared and appropriate for hospitalization. It is my opinion that the patient would benefit from an inpatient evaluation for stabilization of his condition. Medical clearance provided at 9:45 p.m. <Kayce Abreu, DO - Last Filed: 05/29/22 18:45> Lab Data Labs: Lab Results 05/28/22 05/28/22 05/28/22 Range/Units 18:40 18:40 18:40 WBC 6.3 (4.5-11.0) X10^3/uL RBC 5.39 (4.5-5.9) X10^6/uL Hgb 15.9 (13.5-17.5) g/dL Hct 46.6 (41-53) % MCV 86.5 (80-100) fL MCH 29.6 (26-34) PG MCHC 34.2 (30-36) % RDW 13.0 (11.6-14.8) % Plt Count 255 (150-400) X10^3/uL Neut % (Auto) 65.9 (50-75) % Lymph % (Auto) 21.3 L (25-40) % [place] % (Auto) 10.1 (3-14) % Eos % (Auto) 1.8 L (2-4) % Baso % (Auto) 0.9 (0-2) % Neut # (Auto) 4200 (2516-2357) /uL Lymph # (Auto) 1400 (9970-4833) /uL [place] # (Auto) 600 (0-900) /uL Eos # (Auto) 100 (0-450) /uL Baso # (Auto) 100 (0-100) /uL Sodium 139 (137-145) mmol/L Potassium 4.1 (3.4-5.1) mmol/L Chloride 100 (98-107) mmol/L Carbon Dioxide 32 (22-32) mmol/L BUN 13 (9-20) mg/dL Creatinine 0.80 (0.66-1.25) mg/dL Estimated GFR > 60 (>60) mL/min BUN/Creatinine Ratio 16.3 (6-22) Glucose 130 H (70-100) mg/dL Calcium 9.5 (8.4-10.2) mg/dL Total Bilirubin 0.5 (0.2-1.3) mg/dL AST 23 (17-59) IU/L ALT 22 (<50) IU/L Alkaline Phosphatase 69 (38-126) U/L Total Protein 8.3 H (6.3-8.2) g/dL Albumin 4.8 (3.5-5.0) g/dL Globulin 3.5 (1.7-4.1) g/dL Albumin/Globulin Ratio 1.4 (1.0-2.8) TSH 1.06 (0.47-4.68) uIU/mL Urine Color Urine Appearance Urine pH (4.5-8.0) Ur Specific [place] (1.000-1.035) Urine Protein (Negative) Urine Glucose (UA) (Negative) g/dL Urine Ketones (NEGATIVE) Urine Occult Blood (Negative) Urine Nitrate (Negative) Urine Bilirubin (NEGATIVE) Urine Urobilinogen (0.2) E.U./dL Ur Leukocyte Esterase (NEGATIVE) Urine RBC (0-5/HPF) Urine WBC (0-5/HPF) Urine Bacteria (None) U Opiates 300ng/mL cut (Negative) Ur Oxycodone Screen (Negative) Urine Methadone Screen (Negative) Ur Barbiturates Screen (Negative) U Tricyclic Antidepress (Negative) Ur Phencyclidine Scrn (Negative) Ur Amphetamines Screen (Negative) U Methamphetamines Scrn (Negative) Ur MDMA Scrn (Ecstasy) (Negative) U Benzodiazepines Scrn (Negative) Urine Cocaine Screen (Negative) U Marijuana (THC) Screen (Negative) Ethyl Alcohol < 10 ( - 10) mg/dL SARS-CoV-2 (PCR) (Negative) 05/28/22 05/28/22 05/28/22 Range/Units 19:00 19:20 19:20 WBC (4.5-11.0) X10^3/uL RBC (4.5-5.9) X10^6/uL Hgb (13.5-17.5) g/dL Hct (41-53) % MCV (80-100) fL MCH (26-34) PG MCHC (30-36) % RDW (11.6-14.8) % Plt Count (150-400) X10^3/uL Neut % (Auto) (50-75) % Lymph % (Auto) (25-40) % [place] % (Auto) (3-14) % Eos % (Auto) (2-4) % Baso % (Auto) (0-2) % Neut # (Auto) (7092-5557) /uL Lymph # (Auto) (3308-5041) /uL [place] # (Auto) (0-900) /uL Eos # (Auto) (0-450) /uL Baso # (Auto) (0-100) /uL Sodium (137-145) mmol/L Potassium (3.4-5.1) mmol/L Chloride (98-107) mmol/L Carbon Dioxide (22-32) mmol/L BUN (9-20) mg/dL Creatinine (0.66-1.25) mg/dL Estimated GFR (>60) mL/min BUN/Creatinine Ratio (6-22) Glucose (70-100) mg/dL Calcium (8.4-10.2) mg/dL Total Bilirubin (0.2-1.3) mg/dL AST (17-59) IU/L ALT (<50) IU/L Alkaline Phosphatase (38-126) U/L Total Protein (6.3-8.2) g/dL Albumin (3.5-5.0) g/dL Globulin (1.7-4.1) g/dL Albumin/Globulin Ratio (1.0-2.8) TSH (0.47-4.68) uIU/mL Urine Color Yellow Urine Appearance Clear Urine pH 7.0 (4.5-8.0) Ur Specific [place] 1.015 (1.000-1.035) Urine Protein Negative (Negative) Urine Glucose (UA) Negative (Negative) g/dL Urine Ketones Trace H (NEGATIVE) Urine Occult Blood Negative (Negative) Urine Nitrate Negative (Negative) Urine Bilirubin Negative (NEGATIVE) Urine Urobilinogen 1.0 (0.2) E.U./dL Ur Leukocyte Esterase Negative (NEGATIVE) Urine RBC None seen (0-5/HPF) Urine WBC None seen (0-5/HPF) Urine Bacteria Occasional (0-1) (None) U Opiates 300ng/mL cut Negative (Negative) Ur Oxycodone Screen Negative (Negative) Urine Methadone Screen Negative (Negative) Ur Barbiturates Screen Negative (Negative) U Tricyclic Antidepress Negative (Negative) Ur Phencyclidine Scrn Negative (Negative) Ur Amphetamines Screen Negative (Negative) U Methamphetamines Scrn Negative (Negative) Ur MDMA Scrn (Ecstasy) Negative (Negative) U Benzodiazepines Scrn Negative (Negative) Urine Cocaine Screen Negative (Negative) U Marijuana (THC) Screen Negative (Negative) Ethyl Alcohol ( - 10) mg/dL SARS-CoV-2 (PCR) Negative (Negative) Urine Dip Bedside Urine Glucose Negative Bedside Urine Bilirubin - Negative Bedside Urine Ketone - Negative Urine Specific [place] 1.010 Bedside Urine Occult Blood - Negative Bedside Urine pH 7.5 Bedside Urine Protein - Negative Bedside Urine Urobilinogen - Negative Bedside Urine Nitrite - Negative Bedside Urine Leukocytes - Negative Esterase MDM Narrative Medical decision making narrative: 26-year-old male bipolar with increasing suicidal ideation presents requesting help with placement. He is voluntary and has been seen by social work. He is medically cleared and appropriate for hospitalization. It is my opinion that the patient would benefit from an inpatient evaluation for stabilization of his condition. Medical clearance provided at 9:45 p.m. 05/29/22 Mank: This is a 26-year-old male with history of bipolar with increasing suicidal ideation requesting assistance with placement. Has been voluntary had a dose of olanzapine overnight. Patient has been accepted for transfer to [facility] for psychiatric care but we are awaiting prior authorization from his insurance company so that we can set up transport. After multiple phone calls to [facility] we have been told we can not initiate the prior authorization [facility] has 2. I have included social work in his conversation as well. [facility] states patient can be sent while waiting there might be a bill. This was relayed to the patient he is willing to continue with transport. Patient did request an additional dose of medication. Discharge Plan Departure Patient Disposition: Xfer Psychiatric Hosp Clinical Impression: Depression with suicidal ideation, Medical clearance for psychiatric admission Prescriptions: No Action hydroxyzine HCl 10 mg tablet 10 mg PO Q6-8H PRN (Reason: anxiety) Qty: 30 5RF albuterol sulfate 90 mcg/actuation HFA aerosol inhaler 1 - 2 inh inhalation Q4-6H PRN (Reason: shortness of breath or wheezing) Qty: 8.5 11RF lamotrigine 25 mg tablet Patient Comments: take 1 tablet by mouth once daily for 2 weeks ( 14 days ) then ta... (REFER TO PRESCRIPTION NOTES). olanzapine 10 mg tablet 10 mg PO QPM Referrals: America Reddy DO [Primary Care Provider] -
--- NOTE | 2022-05-28 21:34 | PC.NURSE ---
Provider in romm with Pt
[2022-05-28] MEDS: OLANZapine ODT 10 MG TAB 20 MG PO (22:03)
--- NOTE | 2022-05-28 22:32 | PC.NURSE ---
Pt stating I want to leave, I want to go to work in the morning This [employer] spoke with Pt to let him know if he leaves the process would need to start all over possibly delaying acceptance. Pt acknowledges and states I understand Tech offers to get Pt ear plugs and a more comfortable hospital bed if that would help him to relax while waiting for Insurance Auth to happen, Pt agrees to offer.
--- NOTE | 2022-05-29 00:22 | PC.NURSE ---
Pt lying on gurney, eyes closed,chest rising and falling
--- NOTE | 2022-05-29 05:48 | PC.NURSE ---
Pt Lying on bed, eyes closed,chest rising and falling
[2022-05-29 07:12] VITALS: BP 127/82; PULSE 91; O2SAT 98
--- NOTE | 2022-05-29 08:11 | PC.NURSE ---
Contacted [facility] at 0730 #[phone], spoke with rep Vonda Newton Rep stated that [facility] is responsible for obtaining pre-authorization of acceptance of admission. Repeated three times for clarification. contacted [facility] behavioral health spoke with Sergei harmon RN. Sergei stated that is not accurate for [facility] to obtain pre-authorization, but will address it at [facility] morning meeting at 0900. Will f/u after 0930.
[2022-05-29] MEDS: OLANZapine ODT 10 MG TAB 20 MG PO (11:10)
--- NOTE | 2022-05-29 12:44 | PC.NURSE ---
Pt's sister called and informed of pt's transfer to [facility] per pt's verbal request
== END 2022-05-29 12:34 ==
PROVIDERS: Emergency Medicine; Emergency Provider Emergency Medicine; PCP Family Medicine
DX: R45.851 Suicidal ideations (principal); F32.A Depression, unspecified; R07.9 Chest pain, unspecified; Z20.822 Contact with and (suspected) exposure to COVID-19
CPT/HCPCS: 36415; 80053; 80305; 80320; 81001; 81003; 84443; 85025; 87086; 87635; 93005; 99283; 99284; C9803

== ENCOUNTER 2022-06-25 16:45 | Emergency (ER) | payer OTHER, MEDICAID, SELFPAY ==
[2022-06-25 16:52] VITALS: BP 131/90; PULSE 96; RESP 12; TEMP 37; O2SAT 99; BMI 21.7
--- NOTE | 2022-06-25 17:09 | PC.NURSE ---
This MIRROR INSPECTOR helped pt dress in ED safety paper scrubs and placed belongings in patient labeled bags.
--- NOTE | 2022-06-25 17:19 | ED.PSYCH ---
HPI - Psych General Chief Complaint: Psychiatric Symptoms Stated Complaint: [place] [employer] Time Seen by Provider: 06/25/22 17:19 Source: patient and police Mode of arrival: other Related Data Home Medications Medication Instructions Recorded Confirmed lamotrigine 25 mg tablet mg 05/28/22 olanzapine 10 mg tablet 10 mg PO QPM 05/28/22 05/28/22 Previous Rx's Medication Instructions Recorded albuterol sulfate 90 mcg/actuation 1 - 2 inh inhalation Q4-6H PRN 04/05/22 aerosol inhaler shortness of breath or wheezing #8.5 grams hydroxyzine HCl 10 mg tablet 10 mg PO Q6-8H PRN anxiety #30 tabs 04/05/22 Allergies Allergy/AdvReac Type Severity Reaction Status Date / Time No Known Drug Allergies Allergy Verified 06/25/22 16:57 Patient History Medical History Acne (~2005) Asthma (~2015) Bipolar 1 disorder Chronic back pain (~2015) Elevated blood pressure reading without diagnosis of hypertension Hearing loss Heroin use Marijuana use Methamphetamine use Musculoskeletal disorder Psychosis Scoliosis Vasovagal response (~2004) Whooping cough (~2015) Surgical History History of oral surgery Family History Father Diabetes mellitus Mental health problem Epilepsy Mother Melanoma Cancer Diabetes mellitus Mental health problem Grandfather Cancer Grandfather Alzheimer's disease Grandmother Cancer Melanoma Social History Smoking Status: Former smoker Smoking Status: Former smoker alcohol intake frequency: a few times a week Substance Use Type: former substance user and marijuana Exam Initial Vital Signs Initial Vital Signs: Vital Signs Temperature 98.6 F 06/25/22 16:52 Pulse Rate 96 H 06/25/22 16:52 Respiratory Rate 12 06/25/22 16:52 Blood Pressure 131/90 06/25/22 16:52 Pulse Oximetry 99 06/25/22 16:52 Oxygen Delivery Method Room Air 06/25/22 16:52 Course Orders Ordered: ED Orders 06/25/22 16:47 Consult to CLINICAL NUTRITIONIST - Clean In Places Operator Stat Acetaminophen Stat COVID19 -Nasal RAPID Stat Complete Blood Count AUTO DIFF Stat Comprehensive Metabolic Panel Stat Ethanol (ETOH) Stat Free T4, Direct Thyroxine Stat Salicylate Stat Thyroid Stimulating Hormone Stat Urine Drug Screen, Rapid Stat 06/25/22 16:58 Consult to [facility] - Clean In Places Operator Stat 06/25/22 17:05 Consult to [facility] - Clean In Places Operator Stat Vital Signs Vital signs: Vital Signs - 8 hr 06/25/22 16:52 Temperature 98.6 F Pulse Rate 96 H Respiratory Rate 12 Blood Pressure 131/90 Pulse Oximetry 99 Oxygen Delivery Method Room Air Discharge Plan Departure Prescriptions: No Action hydroxyzine HCl 10 mg tablet 10 mg PO Q6-8H PRN (Reason: anxiety) Qty: 30 5RF albuterol sulfate 90 mcg/actuation HFA aerosol inhaler 1 - 2 inh inhalation Q4-6H PRN (Reason: shortness of breath or wheezing) Qty: 8.5 11RF lamotrigine 25 mg tablet Patient Comments: take 1 tablet by mouth once daily for 2 weeks ( 14 days ) then ta... (REFER TO PRESCRIPTION NOTES). olanzapine 10 mg tablet 10 mg PO QPM Referrals: America Reddy DO [Primary Care Provider] -
[2022-06-25 17:34] LABS: Add Manual Diff / Slide Review NO; Basophils Absolute Auto 100 /uL (0-100); Basophils Percent Auto 0.9 % (0-2); Eosinophils Absolute Auto 0 /uL (0-450); Eosinophils Percent Auto 0.8 % (2-4); Hematocrit 44.8 % (41-53); Hemoglobin 15.6 g/dL (13.5-17.5); Lymphocytes Absolute Auto 1400 /uL (1100-4500); Mean Corpuscular HGB Conc 34.8 % (30-36); Mean Corpuscular Hemoglobin 29.9 PG (26-34); Monocytes Absolute Auto 700 /uL (0-900); Monocytes Percent Auto 10.7 % (3-14); Neutrophils Absolute Auto 3900 /uL (1500-7000); Neutrophils Percent Auto 64.6 % (50-75); Platelet Count 260 X10^3/uL (150-400); Red Blood Cell Count 5.22 X10^6/uL (4.5-5.9); Red Cell Distribution Width 13.1 % (11.6-14.8); White Blood Cell Count 6.1 X10^3/uL (4.5-11.0)
[2022-06-25 17:45] LABS: Acetaminophen < 10 ug/mL (10-30); Alanine Aminotransferase 36 IU/L (<50); Albumin 4.9 g/dL (3.5-5.0); Albumin Globulin Ratio 1.5 (1.0-2.8); Alkaline Phosphatase 58 U/L (38-126); Aspartate Aminotransferase 26 IU/L (17-59); BUN Creatinine Ratio 17.8 (6-22); Bilirubin Total 0.5 mg/dL (0.2-1.3); Blood Urea Nitrogen 13 mg/dL (9-20); Calcium 9.7 mg/dL (8.4-10.2); Carbon Dioxide 31 mmol/L (22-32); Chloride 100 mmol/L (98-107); Estimated Glomerular Filt Rate > 60 mL/min (>60); Ethanol (ETOH) < 10 mg/dL; Globulin 3.3 g/dL (1.7-4.1); Glucose 137 mg/dL (70-100); HEMOLYSIS < 15 (0-50); Potassium 4.2 mmol/L (3.4-5.1); Salicylate < 1.0 mg/dL (<20); Sodium 139 mmol/L (137-145); Total Protein 8.2 g/dL (6.3-8.2)
[2022-06-25 17:50] VITALS: BP 123/82; PULSE 93; O2SAT 99
--- NOTE | 2022-06-25 17:51 | ED.PSYCH ---
HPI - Psych <KAYLEE Madrigal - Last Filed: 06/28/22 19:53> General Chief Complaint: Psychiatric Symptoms Stated Complaint: [place] [facility] Time Seen by Provider: 06/25/22 17:19 Source: patient and police Mode of arrival: other History of Present Illness HPI Narrative: This is a 26-year-old male who presents emergency department with [place] [facility] after patient reports feeling suicidal and told his family and had a knife to his throat. Patient was brought in for involuntary evaluation of his suicidality. Patient expresses increased stressors at home, not being able to see his children, states that he does not want to hurt himself now but did earlier. He states that he does not want to go back to the hospital at [facility] where he was hospitalized 1 month ago. Patient has a history of bipolar 1, heroin, marijuana, methamphetamine use, psychosis, scoliosis, chronic back pain and elevated blood pressure. He denies any attempts at harming himself today. Patient states that he feels like he is in despair because he does not have a car, can not help himself, states that he takes lamotrigine, olanzapine, and hydroxyzine as his everyday medications and has not taken more or less knees scheduled meds. States he can't care for his children or provide and means so he feels very depressed. He can not endorse for his safety if he were to go home but states that he wishes he could go home today. Related Data Home Medications Medication Instructions Recorded Confirmed lamotrigine 25 mg tablet mg 05/28/22 olanzapine 10 mg tablet 10 mg PO QPM 05/28/22 05/28/22 Previous Rx's Medication Instructions Recorded albuterol sulfate 90 mcg/actuation 1 - 2 inh inhalation Q4-6H PRN 04/05/22 aerosol inhaler shortness of breath or wheezing #8.5 grams hydroxyzine HCl 10 mg tablet 10 mg PO Q6-8H PRN anxiety #30 tabs 04/05/22 Allergies Allergy/AdvReac Type Severity Reaction Status Date / Time No Known Drug Allergies Allergy Verified 06/25/22 16:57 Review of Systems <KAYLEE Madrigal - Last Filed: 06/28/22 19:53> Review of Systems ROS Unobtainable: All systems reviewed & are unremarkable except as noted in HPI and below Patient History <KAYLEE Madrigal - Last Filed: 06/28/22 19:53> Medical History Acne (~2005) Asthma (~2015) Bipolar 1 disorder Chronic back pain (~2015) Elevated blood pressure reading without diagnosis of hypertension Hearing loss Heroin use Marijuana use Methamphetamine use Musculoskeletal disorder Psychosis Scoliosis Vasovagal response (~2004) Whooping cough (~2015) Surgical History History of oral surgery Family History Father Diabetes mellitus Mental health problem Epilepsy Mother Melanoma Cancer Diabetes mellitus Mental health problem Grandfather Cancer Grandfather Alzheimer's disease Grandmother Cancer Melanoma Social History Smoking Status: Former smoker Smoking Status: Former smoker alcohol intake frequency: a few times a week Substance Use Type: former substance user and marijuana Exam <KAYLEE Madrigal - Last Filed: 06/28/22 19:53> Narrative Exam Narrative: Reviewed vitals signs and nursing notes. General: Pleasant, sitting upright, in no acute distress, well groomed, afebrile HEENT: symmetrical facial expressions, moist mucous membranes, neck is supple CV: regular rate and rhythm, warm extremities Respiratory: normal work of breathing, without tachypnea or hypoxia. GI: abdomen soft, nondistended, without CVA tenderness bilaterally. MSK: moves all extremities, no weakness, normal tone, ambulatory without deficit Skin: brisk capillary refill, without rash or wound Neuro: clear speech and normal cognition, A&O x3, GCS 15, no focal motor or sensation deficits patient has a flat affect and endorses feeling very depressed. Denies suicidal ideation at this time. Initial Vital Signs Initial Vital Signs: Vital Signs Temperature 98.6 F 06/25/22 16:52 Pulse Rate 96 H 06/25/22 16:52 Respiratory Rate 12 06/25/22 16:52 Blood Pressure 131/90 06/25/22 16:52 Pulse Oximetry 99 06/25/22 16:52 Oxygen Delivery Method Room Air 04/30/23 16:52 <Honey Jones MD - Last Filed: 06/26/22 05:08> Initial Vital Signs Initial Vital Signs: Vital Signs Temperature 98.6 F 06/25/22 16:52 Pulse Rate 96 H 06/25/22 16:52 Respiratory Rate 12 06/25/22 16:52 Blood Pressure 131/90 06/25/22 16:52 Pulse Oximetry 99 06/25/22 16:52 Oxygen Delivery Method Room Air 06/25/22 16:52 Course <KAYLEE Madrigal - Last Filed: 06/28/22 19:53> Orders Ordered: Discontinued Medications Hydroxyzine Pamoate (Hydroxyzine Pamoate 25 Mg Capsule) 25 mg PO NOW ONE Stop: 06/25/22 18:34 Last Admin: 06/25/22 18:54 Dose: 25 mg Documented By: JENNIFER Lorazepam (Lorazepam 0.5 Mg Tablet) 2 mg PO NOW ONE Stop: 06/25/22 21:31 Last Admin: 06/25/22 21:34 Dose: 2 mg Documented By: JAVAD Olanzapine (Olanzapine Odt 10 Mg Tab) 10 mg PO BEDTIME [facility] Olanzapine (Olanzapine Odt 10 Mg Tab) 10 mg PO NOW ONE Stop: 06/25/22 18:51 Last Admin: 06/25/22 18:54 Dose: 10 mg Documented By: JENNIFER Trazodone HCl (Trazodone 50 Mg Tablet) 100 mg PO BEDTIME [facility] Last Admin: 06/25/22 21:34 Dose: 100 mg Documented By: JAVAD Vital Signs Vital signs: Vital Signs - 8 hr 06/25/22 23:28 Pulse Rate 85 Respiratory Rate 18 Blood Pressure 90/64 Pulse Oximetry 100 Oxygen Delivery Method Room Air <Honey Jones MD - Last Filed: 06/26/22 05:08> Orders Ordered: Discontinued Medications Hydroxyzine Pamoate (Hydroxyzine Pamoate 25 Mg Capsule) 25 mg PO NOW ONE Stop: 06/25/22 18:34 Last Admin: 06/25/22 18:54 Dose: 25 mg Documented By: JENNIFER Lorazepam (Lorazepam 0.5 Mg Tablet) 2 mg PO NOW ONE Stop: 06/25/22 21:31 Last Admin: 06/25/22 21:34 Dose: 2 mg Documented By: JAVAD Olanzapine (Olanzapine Odt 10 Mg Tab) 10 mg PO BEDTIME [facility] Olanzapine (Olanzapine Odt 10 Mg Tab) 10 mg PO NOW ONE Stop: 06/25/22 18:51 Last Admin: 06/25/22 18:54 Dose: 10 mg Documented By: JENNIFER Trazodone HCl (Trazodone 50 Mg Tablet) 100 mg PO BEDTIME [facility] Last Admin: 06/25/22 21:34 Dose: 100 mg Documented By: JAVAD Vital Signs Vital signs: Vital Signs - 8 hr 06/25/22 23:28 Pulse Rate 85 Respiratory Rate 18 Blood Pressure 90/64 Pulse Oximetry 100 Oxygen Delivery Method Room Air MDM - Psych <Jenn Price, [employer] - Last Filed: 06/28/22 19:53> Lab Data 06/25/22 17:15 06/25/22 17:15 Labs: Lab Results 06/25/22 06/25/22 06/25/22 Range/Units 17:15 17:15 17:15 WBC 6.1 (4.5-11.0) X10^3/uL RBC 5.22 (4.5-5.9) X10^6/uL Hgb 15.6 (13.5-17.5) g/dL Hct 44.8 (41-53) % MCV 86.0 (80-100) fL MCH 29.9 (26-34) PG MCHC 34.8 (30-36) % RDW 13.1 (11.6-14.8) % Plt Count 260 (150-400) X10^3/uL Neut % (Auto) 64.6 (50-75) % Lymph % (Auto) 23.0 L (25-40) % Hard[place] % (Auto) 10.7 (3-14) % Eos % (Auto) 0.8 L (2-4) % Baso % (Auto) 0.9 (0-2) % Neut # (Auto) 3900 (8969-4171) /uL Lymph # (Auto) 1400 (6903-4904) /uL [place] # (Auto) 700 (0-900) /uL Eos # (Auto) 0 (0-450) /uL Baso # (Auto) 100 (0-100) /uL Sodium 139 (137-145) mmol/L Potassium 4.2 (3.4-5.1) mmol/L Chloride 100 (98-107) mmol/L Carbon Dioxide 31 (22-32) mmol/L BUN 13 (9-20) mg/dL Creatinine 0.73 (0.66-1.25) mg/dL Estimated GFR > 60 (>60) mL/min BUN/Creatinine Ratio 17.8 (6-22) Glucose 137 H (70-100) mg/dL Calcium 9.7 (8.4-10.2) mg/dL Total Bilirubin 0.5 (0.2-1.3) mg/dL AST 26 (17-59) IU/L ALT 36 (<50) IU/L Alkaline Phosphatase 58 (38-126) U/L Total Creatine Kinase (55-170) U/L Total Protein 8.2 (6.3-8.2) g/dL Albumin 4.9 (3.5-5.0) g/dL Globulin 3.3 (1.7-4.1) g/dL Albumin/Globulin Ratio 1.5 (1.0-2.8) TSH 0.966 (0.47-4.68) uIU/mL Free T4 1.00 (0.78-2.19) ng/dL Salicylates < 1.0 (<20) mg/dL U Opiates 300ng/mL cut (Negative) Ur Oxycodone Screen (Negative) Urine Methadone Screen (Negative) Acetaminophen < 10 (10-30) ug/mL Ur Barbiturates Screen (Negative) U Tricyclic Antidepress (Negative) Ur Phencyclidine Scrn (Negative) Ur Amphetamines Screen (Negative) U Methamphetamines Scrn (Negative) Ur MDMA Scrn (Ecstasy) (Negative) U Benzodiazepines Scrn (Negative) Urine Cocaine Screen (Negative) U Marijuana (THC) Screen (Negative) Ethyl Alcohol < 10 ( - 10) mg/dL SARS-CoV-2 (PCR) (Negative) 06/25/22 06/25/22 06/25/22 Range/Units 17:15 17:19 18:20 WBC (4.5-11.0) X10^3/uL RBC (4.5-5.9) X10^6/uL Hgb (13.5-17.5) g/dL Hct (41-53) % MCV (80-100) fL MCH (26-34) PG MCHC (30-36) % RDW (11.6-14.8) % Plt Count (150-400) X10^3/uL Neut % (Auto) (50-75) % Lymph % (Auto) (25-40) % [place] % (Auto) (3-14) % Eos % (Auto) (2-4) % Baso % (Auto) (0-2) % Neut # (Auto) (3132-5918) /uL Lymph # (Auto) (8686-5065) /uL [place] # (Auto) (0-900) /uL Eos # (Auto) (0-450) /uL Baso # (Auto) (0-100) /uL Sodium (137-145) mmol/L Potassium (3.4-5.1) mmol/L Chloride (98-107) mmol/L Carbon Dioxide (22-32) mmol/L BUN (9-20) mg/dL Creatinine (0.66-1.25) mg/dL Estimated GFR (>60) mL/min BUN/Creatinine Ratio (6-22) Glucose (70-100) mg/dL Calcium (8.4-10.2) mg/dL Total Bilirubin (0.2-1.3) mg/dL AST (17-59) IU/L ALT (<50) IU/L Alkaline Phosphatase (38-126) U/L Total Creatine Kinase 188 H (55-170) U/L Total Protein (6.3-8.2) g/dL Albumin (3.5-5.0) g/dL Globulin (1.7-4.1) g/dL Albumin/Globulin Ratio (1.0-2.8) TSH (0.47-4.68) uIU/mL Free T4 (0.78-2.19) ng/dL Salicylates (<20) mg/dL U Opiates 300ng/mL cut Negative (Negative) Ur Oxycodone Screen Negative (Negative) Urine Methadone Screen Negative (Negative) Acetaminophen (10-30) ug/mL Ur Barbiturates Screen Negative (Negative) U Tricyclic Antidepress Negative (Negative) Ur Phencyclidine Scrn Negative (Negative) Ur Amphetamines Screen Negative (Negative) U Methamphetamines Scrn Negative (Negative) Ur MDMA Scrn (Ecstasy) Negative (Negative) U Benzodiazepines Scrn Negative (Negative) Urine Cocaine Screen Negative (Negative) U Marijuana (THC) Screen Positive H (Negative) Ethyl Alcohol ( - 10) mg/dL SARS-CoV-2 (PCR) Negative (Negative) Urine Dip Bedside Urine Glucose Negative Bedside Urine Bilirubin - Negative Bedside Urine Ketone - Negative Urine Specific [place] 1.015 Bedside Urine Occult Blood - Negative Bedside Urine pH 6.0 Bedside Urine Protein - Negative Bedside Urine Urobilinogen - Negative Bedside Urine Nitrite - Negative Bedside Urine Leukocytes - Negative Esterase ECG Data Interpretation: EKG independently reviewed by myself at 1945 reveals normal sinus rhythm at [86] bpm with regular axis and intervals. No STEMI, ST segment changes, arrhythmia, or acute ischemic changes. QTC is 437 milliseconds MDM Narrative Medical decision making narrative: Chief Complaint: suicidal ideation Independent historian: patient and [place] [employer] Multiple etiologies for patient's symptoms considered including, but not limited to: psychosis, suicidal ideation I have independently reviewed the patient's vital signs and nursing notes as well as prior records if available. Pertinent records include: History of depression with suicidal ideation 05/28/2022 and was seen in the emergency department that day My EKG interpretation: Normal sinus rhythm without acute ST changes My interpretation of lab studies: CBC is unremarkable, CMP is unremarkable, urine drug screen is positive only for marijuana, COVID PCR is negative, total CK is 188, mildly elevated, patient is drinking water currently Pt is medically clear as of 184. Patient's lamotrigine level is pending, it is a send out lab, there is no social work available, social work evaluation will be tomorrow morning. Consultations: No social services specialist available, will dispatch DCR, patient does not want to go to the [facility], does not want to be admitted, states that he wants to go home and is tearful about needing to stay. Patient reports that he is not currently suicidal and is future oriented. He has severely depressed mood and can not endorse his safety if he goes home although he wishes to go home and is asking to go home. Medical screening exam is reassuring, at this time I do not see any evidence of acute toxicologic, metabolic, or infectious derangement that would explain the patient's presentation. He takes lamotrigine, Zyprexa, and hydroxyzine at baseline, states that he has not slept in a few days because he misses his kids and wishes he could see them. Patient does have priors hospitalizations including 1 month ago. Clinically patient displays no overt toxidrome; they are well appearing, with low suspicion for toxic ingestion given history and exam. Consult: Psychiatry/DCR to evaluate patient for potential hold for danger to self. I spoke with Darien from [facility] DCR, he agrees that since patient has had similar affect over the last week, he is had contact with patient or someone from crisis triage has had contact with him both on the and and patient has had overwhelming depression with despair. Darien reports that patient's family is concerned about him. I mentioned that I think it is time for something to change because this patient is having recurring suicidal ideation, has had short stents as an inpatient but does not have a therapist and is not on anything for his mood. He was treated with olanzapine, reportedly he has not been taking his lamotrigine and a lamotrigine level is not available immediately because it is a send out. Patient does deescalate himself quickly, he gets worked up and then can calm down in a matter of seconds. Has been common cooperative since he has been here. Disposition: Plan admit to [facility] with DCR for further management of patient's suicidality Social considerations that may affect disposition: Transportation Questions are addressed and there is agreement with the plan and for follow-up. I consulted with the ED attending physician Dr. Jones as needed for higher level of care considerations and they were available for discussion and recommendations regarding plan of care and diagnostic testing. Patient is appropriate for outpatient management. <Honey Jones MD - Last Filed: 06/26/22 05:08> Lab Data Labs: Lab Results 06/25/22 06/25/22 06/25/22 Range/Units 17:15 17:15 17:15 WBC 6.1 (4.5-11.0) X10^3/uL RBC 5.22 (4.5-5.9) X10^6/uL Hgb 15.6 (13.5-17.5) g/dL Hct 44.8 (41-53) % MCV 86.0 (80-100) fL MCH 29.9 (26-34) PG MCHC 34.8 (30-36) % RDW 13.1 (11.6-14.8) % Plt Count 260 (150-400) X10^3/uL Neut % (Auto) 64.6 (50-75) % Lymph % (Auto) 23.0 L (25-40) % [place] % (Auto) 10.7 (3-14) % Eos % (Auto) 0.8 L (2-4) % Baso % (Auto) 0.9 (0-2) % Neut # (Auto) 3900 (4920-1319) /uL Lymph # (Auto) 1400 (0654-1913) /uL [place] # (Auto) 700 (0-900) /uL Eos # (Auto) 0 (0-450) /uL Baso # (Auto) 100 (0-100) /uL Sodium 139 (137-145) mmol/L Potassium 4.2 (3.4-5.1) mmol/L Chloride 100 (98-107) mmol/L Carbon Dioxide 31 (22-32) mmol/L BUN 13 (9-20) mg/dL Creatinine 0.73 (0.66-1.25) mg/dL Estimated GFR > 60 (>60) mL/min BUN/Creatinine Ratio 17.8 (6-22) Glucose 137 H (70-100) mg/dL Calcium 9.7 (8.4-10.2) mg/dL Total Bilirubin 0.5 (0.2-1.3) mg/dL AST 26 (17-59) IU/L ALT 36 (<50) IU/L Alkaline Phosphatase 58 (38-126) U/L Total Creatine Kinase (55-170) U/L Total Protein 8.2 (6.3-8.2) g/dL Albumin 4.9 (3.5-5.0) g/dL Globulin 3.3 (1.7-4.1) g/dL Albumin/Globulin Ratio 1.5 (1.0-2.8) TSH 0.966 (0.47-4.68) uIU/mL Free T4 1.00 (0.78-2.19) ng/dL Salicylates < 1.0 (<20) mg/dL U Opiates 300ng/mL cut (Negative) Ur Oxycodone Screen (Negative) Urine Methadone Screen (Negative) Acetaminophen < 10 (10-30) ug/mL Ur Barbiturates Screen (Negative) U Tricyclic Antidepress (Negative) Ur Phencyclidine Scrn (Negative) Ur Amphetamines Screen (Negative) U Methamphetamines Scrn (Negative) Ur MDMA Scrn (Ecstasy) (Negative) U Benzodiazepines Scrn (Negative) Urine Cocaine Screen (Negative) U Marijuana (THC) Screen (Negative) Ethyl Alcohol < 10 ( - 10) mg/dL SARS-CoV-2 (PCR) (Negative) 06/25/22 06/25/22 06/25/22 Range/Units 17:15 17:19 18:20 WBC (4.5-11.0) X10^3/uL RBC (4.5-5.9) X10^6/uL Hgb (13.5-17.5) g/dL Hct (41-53) % MCV (80-100) fL MCH (26-34) PG MCHC (30-36) % RDW (11.6-14.8) % Plt Count (150-400) X10^3/uL Neut % (Auto) (50-75) % Lymph % (Auto) (25-40) % [place] % (Auto) (3-14) % Eos % (Auto) (2-4) % Baso % (Auto) (0-2) % Neut # (Auto) (3158-1927) /uL Lymph # (Auto) (7633-2157) /uL [place] # (Auto) (0-900) /uL Eos # (Auto) (0-450) /uL Baso # (Auto) (0-100) /uL Sodium (137-145) mmol/L Potassium (3.4-5.1) mmol/L Chloride (98-107) mmol/L Carbon Dioxide (22-32) mmol/L BUN (9-20) mg/dL Creatinine (0.66-1.25) mg/dL Estimated GFR (>60) mL/min BUN/Creatinine Ratio (6-22) Glucose (70-100) mg/dL Calcium (8.4-10.2) mg/dL Total Bilirubin (0.2-1.3) mg/dL AST (17-59) IU/L ALT (<50) IU/L Alkaline Phosphatase (38-126) U/L Total Creatine Kinase 188 H (55-170) U/L Total Protein (6.3-8.2) g/dL Albumin (3.5-5.0) g/dL Globulin (1.7-4.1) g/dL Albumin/Globulin Ratio (1.0-2.8) TSH (0.47-4.68) uIU/mL Free T4 (0.78-2.19) ng/dL Salicylates (<20) mg/dL U Opiates 300ng/mL cut Negative (Negative) Ur Oxycodone Screen Negative (Negative) Urine Methadone Screen Negative (Negative) Acetaminophen (10-30) ug/mL Ur Barbiturates Screen Negative (Negative) U Tricyclic Antidepress Negative (Negative) Ur Phencyclidine Scrn Negative (Negative) Ur Amphetamines Screen Negative (Negative) U Methamphetamines Scrn Negative (Negative) Ur MDMA Scrn (Ecstasy) Negative (Negative) U Benzodiazepines Scrn Negative (Negative) Urine Cocaine Screen Negative (Negative) U Marijuana (THC) Screen Positive H (Negative) Ethyl Alcohol ( - 10) mg/dL SARS-CoV-2 (PCR) Negative (Negative) Urine Dip Bedside Urine Glucose Negative Bedside Urine Bilirubin - Negative Bedside Urine Ketone - Negative Urine Specific [place] 1.015 Bedside Urine Occult Blood - Negative Bedside Urine pH 6.0 Bedside Urine Protein - Negative Bedside Urine Urobilinogen - Negative Bedside Urine Nitrite - Negative Bedside Urine Leukocytes - Negative Esterase MDM Narrative Medical decision making narrative: Chief Complaint: suicidal ideation Independent historian: patient and [place] [employer] Multiple etiologies for patient's symptoms considered including, but not limited to: psychosis, suicidal ideation I have independently reviewed the patient's vital signs and nursing notes as well as prior records if available. Pertinent records include: History of depression with suicidal ideation 05/28/2022 and was seen in the emergency department that day My EKG interpretation: Normal sinus rhythm without acute ST changes My interpretation of lab studies: CBC is unremarkable, CMP is unremarkable, urine drug screen is positive only for marijuana, COVID PCR is negative, total CK is 188, mildly elevated, patient is drinking water currently Pt is medically clear as of 1842. Patient's lamotrigine level is pending, it is a send out lab, there is no social work available, social work evaluation will be tomorrow morning. Consultations: No social services specialist available, will dispatch DCR, patient does not want to go to the [facility], does not want to be admitted, states that he wants to go home and is tearful about needing to stay. Patient reports that he is not currently suicidal and is future oriented. He has severely depressed mood and can not endorse his safety if he goes home although he wishes to go home and is asking to go home. Medical screening exam is reassuring, at this time I do not see any evidence of acute toxicologic, metabolic, or infectious derangement that would explain the patient's presentation. He takes lamotrigine, Zyprexa, and hydroxyzine at baseline, states that he has not slept in a few days because he misses his kids and wishes he could see them. Patient does have priors hospitalizations including 1 month ago. Clinically patient displays no overt toxidrome; they are well appearing, with low suspicion for toxic ingestion given history and exam. Consult: Psychiatry/DCR to evaluate patient for potential hold for danger to self. I spoke with Darien from [facility] DCR, he agrees that since patient has had similar affect over the last week, he is had contact with patient or someone from crisis triage has had contact with him both on the and and patient has had overwhelming depression with despair. Darien reports that patient's family is concerned about him. I mentioned that I think it is time for something to change because this patient is having recurring suicidal ideation, has had short stents as an inpatient but does not have a therapist and is not on anything for his mood. He was treated with olanzapine, reportedly he has not been taking his lamotrigine and a lamotrigine level is not available immediately because it is a send out. Patient does deescalate himself quickly, he gets worked up and then can calm down in a matter of seconds. Has been common cooperative since he has been here. Disposition: Plan admit to [facility] with DCR for further management of patient's suicidality Social considerations that may affect disposition: Transportation Questions are addressed and there is agreement with the plan and for follow-up. I consulted with the ED attending physician Dr. Jones as needed for higher level of care considerations and they were available for discussion and recommendations regarding plan of care and diagnostic testing. Patient is appropriate for outpatient management. 945 pm patient is served legal paperwork. Is detained. Beds available at [facility] and he will be transferred this evening. Is slightly more agitated and he is given 2 mg of oral Ativan at this time. Discharge Plan Departure Patient Disposition: [facility] Clinical Impression: Depression with suicidal ideation Prescriptions: No Action hydroxyzine HCl 10 mg tablet 10 mg PO Q6-8H PRN (Reason: anxiety) Qty: 30 5RF albuterol sulfate 90 mcg/actuation HFA aerosol inhaler 1 - 2 inh inhalation Q4-6H PRN (Reason: shortness of breath or wheezing) Qty: 8.5 11RF lamotrigine 25 mg tablet Patient Comments: take 1 tablet by mouth once daily for 2 weeks ( 14 days ) then ta... (REFER TO PRESCRIPTION NOTES). olanzapine 10 mg tablet 10 mg PO QPM Referrals: America Reddy DO [Primary Care Provider] -
[2022-06-25 18:08] LABS: UR Morphine/Opiate cutoff 300 Negative (Negative); Ur Creatinine Normal (Normal); Ur Specific Gravity Normal (Normal); Urine Amphetamines Negative (Negative); Urine Barbiturates Negative (Negative); Urine Benzodiazepines Negative (Negative); Urine Cocaine Negative (Negative); Urine MDMA Negative (Negative); Urine Methadone Negative (Negative); Urine Methamphetamines Negative (Negative); Urine Oxycodone Negative (Negative); Urine Phencyclidine Negative (Negative); Urine Tetrahydrocannabinol Positive (Negative); Urine Tricyclic Antidepressant Negative (Negative); Urine pH Normal (Normal)
[2022-06-25 18:11] LABS: Creatine Kinase 188 U/L (55-170)
[2022-06-25 18:40] LABS: COVID19 -Nasal RAPID Negative (Negative)
--- NOTE | 2022-06-25 18:46 | PC.NURSE ---
Pt told this [facility] [employer] I want to go home and asks to leave. Provider Crew, [facility] aware.
[2022-06-25] MEDS: OLANZapine ODT 10 MG TAB PO (18:54)
[2022-06-25] MEDS: hydrOXYzine pamoate 25 MG CAPSULE PO (18:54)
[2022-06-25 19:24] VITALS: BP 125/74; PULSE 85; RESP 18; O2SAT 100
--- NOTE | 2022-06-25 21:29 | PC.NURSE ---
Patient becoming a little agitated and yelling. Redirected
[2022-06-25] MEDS: TRAZODONE 50 MG TABLET 100 MG PO (21:34)
[2022-06-25] MEDS: LORazepam 0.5 MG TABLET 2 MG PO (21:34)
[2022-06-25 23:28] VITALS: BP 90/64; PULSE 85; RESP 18; O2SAT 100
[2022-06-27 15:37] LABS: Thyroid Stimulating Hormone 0.966 uIU/mL (0.47-4.68)
== END 2022-06-25 23:40 | disposition short-term general hospital (02) ==
PROVIDERS: Emergency Medicine; Nurse Practitioner Critical Care Medicine; Emergency Provider Emergency Medicine; PCP Family Medicine
DX: R45.851 Suicidal ideations (principal); R79.89 Other specified abnormal findings of blood chemistry; R07.9 Chest pain, unspecified; Z20.822 Contact with and (suspected) exposure to COVID-19
CPT/HCPCS: 36415; 80053; 80305; 80320; 80329; 81003; 82550; 84439; 84443; 85025; 87635; 93005; 99284; C9803; G0480

== ENCOUNTER → 2022-09-26 07:58 | Outpatient (CLI) | payer OTHER, MEDICAID, SELFPAY | PROVIDERS: PCP Family Medicine; Visit Provider Physician Assistant | DX: J02.9 Acute pharyngitis, unspecified (principal) | CPT/HCPCS: 87070; 87880 ==

== ENCOUNTER → 2022-12-26 14:07 | Outpatient (CLI) | payer OTHER, MEDICAID, SELFPAY ==
[2022-12-26 15:32] LABS: Influenza A - CEPHEID Flu A NEGATIVE (NEGATIVE); Influenza B - CEPHEID Flu B NEGATIVE (NEGATIVE); Respiratory Syncytial Virus Negative (Negative)
[2022-12-26 15:53] LABS: COVID-19 CEPHEID 4-PLEX PCR Negative (Negative)
== END ==
PROVIDERS: PCP Family Medicine; Visit Provider Student in an Organized Health Care Education/Training Program
DX: R05.1 Acute cough (principal)
CPT/HCPCS: 0241U

== ENCOUNTER → 2023-04-05 09:18 | Outpatient (CLI) | payer OTHER, MEDICAID, SELFPAY ==
[2023-04-05 14:05] LABS: Influenza A - CEPHEID Flu A NEGATIVE (NEGATIVE); Influenza B - CEPHEID Flu B NEGATIVE (NEGATIVE); Respiratory Syncytial Virus Negative (Negative)
[2023-04-05 14:08] LABS: COVID-19 CEPHEID 4-PLEX PCR Negative (Negative)
== END ==
PROVIDERS: PCP Family Medicine; Visit Provider Physician Assistant
DX: R05.1 Acute cough (principal)
CPT/HCPCS: 0241U

== ENCOUNTER → 2023-05-07 12:22 | Outpatient (CLI) | payer OTHER, MEDICAID, SELFPAY ==
[2023-05-07 13:02] LABS: Alanine Aminotransferase 30 IU/L (<50); Albumin 4.4 g/dL (3.5-5.0); Albumin Globulin Ratio 1.5 (1.0-2.8); Alkaline Phosphatase 65 U/L (38-126); Aspartate Aminotransferase 29 IU/L (17-59); BUN Creatinine Ratio 18.3 (6-22); Bilirubin Total 0.7 mg/dL (0.2-1.3); Blood Urea Nitrogen 17 mg/dL (9-20); Calcium 9.6 mg/dL (8.4-10.2); Carbon Dioxide 28 mmol/L (22-32); Chloride 108 mmol/L (98-107); Estimated Glomerular Filt Rate > 60 mL/min (>60); Globulin 2.9 g/dL (1.7-4.1); Glucose 99 mg/dL (70-100); HEMOLYSIS < 15 (0-50); Potassium 3.8 mmol/L (3.4-5.1); Sodium 141 mmol/L (137-145); Total Protein 7.3 g/dL (6.3-8.2)
== END ==
PROVIDERS: PCP Family Medicine; Referring Provider Physician Assistant; Visit Provider Physician Assistant
DX: R03.0 Elevated blood-pressure reading, without diagnosis of hypertension (principal); F31.9 Bipolar disorder, unspecified; R63.5 Abnormal weight gain
CPT/HCPCS: 36415; 80053; 83036

== ENCOUNTER 2023-05-22 05:30 | Emergency (ER) | payer OTHER, MEDICAID, SELFPAY ==
[2023-05-22 05:32] VITALS: BP 117/80; PULSE 79; RESP 16; TEMP 36.5; O2SAT 99; BMI 27.8
--- NOTE | 2023-05-22 05:44 | ED_ITS ---
HPI - General Adult General Chief complaint: Extremity Injury, Upper Stated complaint: rt thumb pain Time Seen by Provider: 05/22/23 05:32 Source: patient Mode of arrival: Ambulatory History of Present Illness HPI narrative: Patient is a 27-year-old male here for evaluation of injury to his right thumb. He thinks that yesterday he got something stuck under his fingernail of his right thumb. He reports that it is throbbing in his now swollen. No redness. He is unsure as to exactly what potentially got stuck under the thumb. Related Data Home Medications Medication Instructions Recorded Confirmed bupropion HCl 75 mg tablet 75 mg PO DAILY 09/06/22 05/07/23 Previous Rx's Medication Instructions Recorded lamotrigine 25 mg tablet 100 mg (4 x 25 mg) PO DAILY #120 09/06/22 tabs lithium carbonate 300 mg tablet 1,200 mg (4 x 300 mg) PO BEDTIME 09/06/22 #120 tabs benzonatate 200 mg capsule 200 mg PO TID #30 caps 04/05/23 guaifenesin 1,200 mg tablet, 1,200 mg PO BID #30 tabs 04/05/23 extended release 12 hr naproxen 500 mg tablet 500 mg PO BID PRN pain #40 tabs 04/05/23 albuterol sulfate 90 mcg/actuation 1 - 2 inh inhalation Q4-6H PRN 04/27/23 aerosol inhaler shortness of breath or wheezing #8.5 grams doxycycline hyclate 100 mg capsule 100 mg PO DAILY #30 caps 05/07/23 cephalexin 500 mg capsule 500 mg PO QID 5 days #20 caps 05/22/23 Allergies Allergy/AdvReac Type Severity Reaction Status Date / Time No Known Drug Allergies Allergy Verified 05/22/23 05:40 Review of Systems Musculoskeletal Musculoskeletal: Reports system reviewed and no additional complaints, except as documented Integumentary/Breasts Skin/Breast: Reports system reviewed and no additional complaints, except as documented Neurologic Neurologic: Reports system reviewed and no additional complaints, except as documented Patient History Medical History Bipolar 1 disorder Psychosis Musculoskeletal disorder Hearing loss Acne (~2005) Whooping cough (~2015) Asthma (~2015) Vasovagal response (~2004) Scoliosis Chronic back pain (~2015) Elevated blood pressure reading without diagnosis of hypertension Marijuana use Heroin use Methamphetamine use Surgical History History of oral surgery Family History Father Diabetes mellitus Mental health problem Epilepsy Mother Melanoma Cancer Diabetes mellitus Mental health problem Grandfather Cancer Grandfather Alzheimer's disease Grandmother Cancer Melanoma Social History Smoking Status: Former smoker Smoking Status: Former smoker alcohol intake frequency: a few times a week Substance Use Type: former substance user and marijuana Exam Initial Vital Signs Initial Vital Signs: Vital Signs Temperature 97.7 F 05/22/23 05:32 Pulse Rate 79 05/22/23 05:32 Respiratory Rate 16 05/22/23 05:32 Blood Pressure 117/80 05/22/23 05:32 Pulse Oximetry 99 05/22/23 05:32 Oxygen Delivery Method Room Air 05/22/23 05:32 Const General: cooperative Cardio Pulses: radial pulses present on the right Skin General: no rashes or lesions noted Extrem Other: Mild swelling to the thumb. Under the tip of the nail there is a dark area. This is not a hematoma but potentially a foreign body. I am unable to exactly visualize what this is. The pad of the thumb is soft. There was no purulence. No erythema. Procedures Nerve Block Nerve Block 1: Local Anesthetic: lidocaine 1% Amount of anesthesia used (mL): 5 Side: right Nerve Blocks: digital (Thumb) Procedure Successful: Yes Patient Tolerated Procedure: Well and No complications Course Orders Ordered: Discontinued Medications Cephalexin HCl (Cephalexin 250 Mg Capsule) 500 mg PO NOW ONE Stop: 05/22/23 05:45 Last Admin: 05/22/23 05:53 Dose: 500 mg Documented By: SB Ibuprofen (Ibuprofen 400 Mg Tablet) 800 mg PO NOW ONE Stop: 05/22/23 05:45 Last Admin: 05/22/23 05:53 Dose: 800 mg Documented By: SB Lidocaine HCl (Lidocaine 1% 20 Ml) 20 ml INJ INTRA-OP ONE Stop: 05/22/23 06:00 Last Admin: 05/22/23 06:03 Dose: 20 ml Documented By: SB Vital Signs Vital signs: Vital Signs - 8 hr 05/22/23 05:32 05/22/23 06:14 Temperature 97.7 F Pulse Rate 79 66 Respiratory Rate 16 16 Blood Pressure 117/80 125/83 Pulse Oximetry 99 97 Oxygen Delivery Method Room Air Room Air Medical Decision Making MDM Narrative Medical decision making narrative: Potentially a foreign body under the nail bed although does not easily visualized. He does have swelling to the thumb. There is no fullness to the pad of the thumb. Low suspicion for felon. Initially the plan was to just place him on antibiotics as he wanted to try to avoid a finger block and exploration however after he was initially discharge he changed his mind. A finger block was performed. I was able to insert a blade under the fingernail. There was no foreign body noted however it was able to express a small amount of purulent material. We will continue with the oral antibiotics. We discussed care instructions and return precautions. He expressed understanding and agreement with plan. Discharge Plan Departure Patient Disposition: Home Clinical Impression: Injury Activity Restrictions/Additional Instructions: Take the antibiotics as directed. You can take Tylenol/ibuprofen for any discomfort. [facility] You can wash your hands like normal but do not soak your hand and anything for the next 24 hours. Return to the emergency department for new symptoms. Prescriptions: New cephalexin 500 mg capsule 500 mg PO QID 5 Days Qty: 20 0RF No Action albuterol sulfate 90 mcg/actuation HFA aerosol inhaler 1 - 2 inh inhalation Q4-6H PRN (Reason: shortness of breath or wheezing) Qty: 8.5 11RF benzonatate 200 mg capsule 200 mg PO TID Qty: 30 0RF guaifenesin 1,200 mg tablet extended release 12hr 1,200 mg PO BID Qty: 30 0RF naproxen 500 mg tablet 500 mg PO BID PRN (Reason: pain) Qty: 40 0RF bupropion HCl 75 mg tablet 75 mg PO DAILY Rx Instructions: administer 6 hours apart lithium carbonate 300 mg tablet 1,200 mg PO BEDTIME Qty: 120 0RF Rx Instructions: Thru psychiatry lamotrigine 25 mg tablet 100 mg PO DAILY Qty: 120 0RF Rx Instructions: thru psychiatry doxycycline hyclate 100 mg capsule 100 mg PO DAILY Qty: 30 1RF Referrals: America Reddy DO [Primary Care Provider] - Stand Alone Forms: Patient Portal/API, Work Release Note
[2023-05-22] MEDS: IBUPROFEN 400 MG TABLET 800 MG PO (05:53)
[2023-05-22] MEDS: cephALEXin 250 MG CAPSULE 500 MG PO (05:53)
[2023-05-22] MEDS: LIDOCAINE 1% 20 ML INJ (06:03)
[2023-05-22 06:14] VITALS: BP 125/83; PULSE 66; RESP 16; O2SAT 97
--- NOTE | 2023-05-22 06:35 | PC.NURSE ---
Pt tolerated numbing and debriedment of wound. Pt sat in room for a few moments on monitor as pt reports to staff that he has a weak stomach and can faint easily. Pt tolerated well. VSS. Upon time for discharge, pt was able to ambulate without assistance. Denied any lightheadedness upon discharge.
[2023-05-22 06:38] VITALS: BP 113/60; PULSE 71; RESP 16; O2SAT 98
== END 2023-05-22 06:40 | disposition home or self-care (01) ==
PROVIDERS: Emergency Provider Emergency Medicine; PCP Family Medicine
DX: S69.91XA Unspecified injury of right wrist, hand and finger(s), initial encounter (principal); X58.XXXA Exposure to other specified factors, initial encounter
CPT/HCPCS: 64450; 99283

== ENCOUNTER 2024-06-13 16:19 | Emergency (ER) | payer SELFPAY ==
[2024-06-13 17:00] VITALS: BP 121/61; PULSE 72; RESP 16; TEMP 36.8; O2SAT 98; BMI 21.9
--- NOTE | 2024-06-13 17:50 | PC.NURSE ---
This RN presented case to Dr. Gastelum and received verbal orders for patient. Patient states he has hx of PTSD for being at the hospital. IV line attempted by in left AC without success. Patient expressed extreme anxiety. Patient began ranting about missing the line. Patient began swearing. This RN attempted to soothe patient but patient aggression and anxiety continued to elevate. Patient got up from chair stating fuck this place, I'm out of here. Patient got up and continued to swear as he left the department. Patient left department at 1745.
== END 2024-06-13 17:45 | disposition left against medical advice (07) ==
PROVIDERS: Emergency Provider Emergency Medicine; PCP Family Medicine
DX: R11.2 Nausea with vomiting, unspecified (principal)
CPT/HCPCS: 99281